=== PATIENT | female | born 1970 | race Caucasian/White ===

== ENCOUNTER 2016-08-15 17:25 | Emergency (ER) | payer OTHER ==
[2016-08-15] MEDS ORDERED: RX INFO: IV CONTRAST WAS GIVEN 1 EACH MISC MISCELLANE PRN (20:05)
--- NOTE | 2016-08-15 20:05 | ED ---
General Adult HPI - General Chief complaint: GI Bleed Stated complaint: Abd.pain/bleeding Time Seen by Provider: 08/15/16 18:30 Source: patient, RN notes reviewed Mode of arrival: ambulatory Limitations: no limitations - History of Present Illness Initial comments: This is a 46-year-old female who presents to the emergency department complaining of bright red blood per rectum. 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 Patient states this started 2 days ago and he continues every bowel movement. Patient does not have any lightheadedness dizziness or near syncopal episode she denies any palpitations she denies any difficulty breathing or shortness of breath. Patient states she has felt a little bit tired lately but that's it. Patient states she gets some abdominal pains particularly on the left lower side. Patient denies ever having had a colonoscopy. - Related Data Home Medications Medication Instructions Recorded Confirmed Omeprazole 20 mg PO HS 08/15/16 08/15/16 Vitamin B Complex 1 cap PO HS 08/15/16 08/15/16 Previous Rx's Medication Instructions Recorded Amoxicillin/Potassium Clav 1 each PO Q12HR #28 tab 08/15/16 [Augmentin 875-125 Tablet] Allergies Allergy/AdvReac Type Severity Reaction Status Date / Time BLOOD THINERS AdvReac CAN NOT Uncoded 08/15/16 19:41 HAVE Review of Systems ROS Statement: Those systems with pertinent positive or pertinent negative responses have been documented in the HPI. ROS Other: All systems not noted in ROS Statement are negative. Past Medical History Past Medical History: No Reported History History of Any Multi-Drug Resistant Organisms: None Reported Past Surgical History: Section Past Psychological History: No Psychological Hx Reported Smoking Status: Never smoker Past Alcohol Use History: Occasional Past Drug Use History: None Reported General Exam - General Exam Comments Initial Comments: GENERAL: Patient is well-developed and well-nourished. Patient is nontoxic and well- hydrated and is in no acute distress. ENT: Neck is soft and supple. No significant lymphadenopathy is noted. Oropharynx is clear. Moist mucous membranes. Neck has full range of motion without eliciting any pain. EYES: The sclera were anicteric and conjunctiva were pink and moist. Extraocular movements were intact and pupils were equal round and reactive to light. Eyelids were unremarkable. PULMONARY: Unlabored respirations. Good breath sounds bilaterally. No audible rales rhonchi or wheezing was noted. CARDIOVASCULAR: There is a regular rate and rhythm without any murmurs gallops or rubs. ABDOMEN: Patient has some tenderness in the left lower quadrant. No rebound or guarding. No palpable organomegaly was noted. There is no palpable pulsatile mass. SKIN: Skin is clear with no lesions or rashes and otherwise unremarkable. NEUROLOGIC: Patient is alert and oriented x3. Cranial nerves II through XII are grossly intact. Motor and sensory are also intact. Normal speech, volume and content. Symmetrical smile. MUSCULOSKELETAL: Normal extremities with adequate strength and full range of motion. LYMPHATICS: No significant lymphadenopathy is noted PSYCHIATRIC: Normal psychiatric evaluation. Limitations: no limitations Course Vital Signs 08/15/16 18:29 Temperature 99.2 F Pulse Rate 117 H Respiratory 20 Rate Blood Pressure 155/100 O2 Sat by Pulse 98 Oximetry Medical Decision Making - Medical Decision Making CAT scan shows mild diverticulitis - Lab Data Result diagrams: 08/15/16 20:10 08/15/16 20:10 Lab Results 08/15/16 08/15/16 08/15/16 Range/Units 20:10 20:10 20:10 WBC 11.3 H (3.8-10.6) k/uL RBC 4.65 (3.80-5.40) m/uL Hgb 15.6 (11.4-16.0) gm/dL Hct 45.9 (34.0-46.0) % MCV 98.8 (80.0-100.0) fL MCH 33.4 (25.0-35.0) pg MCHC 33.9 (31.0-37.0) g/dL RDW 12.6 (11.5-15.5) % Plt Count 252 (150-450) k/uL Neutrophils % 66 % Lymphocytes % 26 % Monocytes % 4 % Eosinophils % 2 % Basophils % 1 % Neutrophils # 7.4 (1.3-7.7) k/uL Lymphocytes # 2.9 (1.0-4.8) k/uL Monocytes # 0.5 (0-1.0) k/uL Eosinophils # 0.3 (0-0.7) k/uL Basophils # 0.1 (0-0.2) k/uL PT (9.0-12.0) sec INR (<1.1) APTT (22.0-30.0) sec Sodium 139 (137-145) mmol/L Potassium 4.1 (3.5-5.1) mmol/L Chloride 106 (98-107) mmol/L Carbon Dioxide 22 (22-30) mmol/L Anion Gap 11 mmol/L BUN 4 L (7-17) mg/dL Creatinine 0.77 (0.52-1.04) mg/dL Est GFR (MDRD) Af Amer >60 (>60 ml/min/1.73 sqM) Est GFR (MDRD) Non-Af >60 (>60 ml/min/1.73 sqM) Glucose 102 H (74-99) mg/dL Calcium 9.5 (8.4-10.2) mg/dL Total Bilirubin 0.6 (0.2-1.3) mg/dL AST 61 H (14-36) U/L ALT 88 H (9-52) U/L Alkaline Phosphatase 101 (38-126) U/L Total Protein 7.2 (6.3-8.2) g/dL Albumin 4.1 (3.5-5.0) g/dL Blood Type O Positive Blood Type Recheck No Antibody Screen NEGATIVE Spec Expiration Date 08/18/2016 - 230908/15/16 Range/Units 20:10 WBC (3.8-10.6) k/uL RBC (3.80-5.40) m/uL Hgb (11.4-16.0) gm/dL Hct (34.0-46.0) % MCV (80.0-100.0) fL MCH (25.0-35.0) pg MCHC (31.0-37.0) g/dL RDW (11.5-15.5) % Plt Count (150-450) k/uL Neutrophils % % Lymphocytes % % Monocytes % % Eosinophils % % Basophils % % Neutrophils # (1.3-7.7) k/uL Lymphocytes # (1.0-4.8) k/uL Monocytes # (0-1.0) k/uL Eosinophils # (0-0.7) k/uL Basophils # (0-0.2) k/uL PT 10.1 (9.0-12.0) sec INR 1.0 (<1.1) APTT 26.4 (22.0-30.0) sec Sodium (137-145) mmol/L Potassium (3.5-5.1) mmol/L Chloride (98-107) mmol/L Carbon Dioxide (22-30) mmol/L Anion Gap mmol/L BUN (7-17) mg/dL Creatinine (0.52-1.04) mg/dL Est GFR (MDRD) Af Amer (>60 ml/min/1.73 sqM) Est GFR (MDRD) Non-Af (>60 ml/min/1.73 sqM) Glucose (74-99) mg/dL Calcium (8.4-10.2) mg/dL Total Bilirubin (0.2-1.3) mg/dL AST (14-36) U/L ALT (9-52) U/L Alkaline Phosphatase (38-126) U/L Total Protein (6.3-8.2) g/dL Albumin (3.5-5.0) g/dL Blood Type Blood Type Recheck Antibody Screen Spec Expiration Date Disposition Clinical Impression: Diverticulitis, Rectal bleeding Disposition: HOME SELF-CARE Condition: Good Instructions: Diverticulitis (ED), Rectal Bleeding (ED) Prescriptions: Amoxicillin/Potassium Clav [Augmentin 875-125 Tablet] 1 each PO Q12HR #28 tab Referrals: Terrance Alfredo MD [Primary Care Provider] - 1-2 days Time of Disposition: 22:14
[2016-08-15 20:29] LABS: Basophils # (A) 0.1 k/uL (0-0.2); Basophils % (A) 1 %; CH 34.4; Eosinophils # (A) 0.3 k/uL (0-0.7); Eosinophils % (A) 2 %; HCT 45.9 % (34.0-46.0); HDW 2.24; HGB 15.6 gm/dL (11.4-16.0); Luc # (Auto) 0.15; Luc % (Auto) 1; Lymphocytes # (A) 2.9 k/uL (1.0-4.8); Lymphocytes % (A) 26 %; MCH 33.4 pg (25.0-35.0); MCHC 33.9 g/dL (31.0-37.0); MCV 98.8 fL (80.0-100.0); Mean Platelet Volume 7.6; Monocytes # (A) 0.5 k/uL (0-1.0); Monocytes % (A) 4 %; Neutrophils # (A) 7.4 k/uL (1.3-7.7); Neutrophils % (A) 66 %; RBC 4.65 m/uL (3.80-5.40); RDW 12.6 % (11.5-15.5); WBC 11.3 k/uL (3.8-10.6); WBC (Perox) 10.66
[2016-08-15 20:41] LABS: ALT 88 U/L (9-52); AST 61 U/L (14-36); Alkaline Phosphatase 101 U/L (38-126); Anion Gap 11 mmol/L; Blood Urea Nitrogen 4 mg/dL (7-17); Calcium 9.5 mg/dL (8.4-10.2); Carbon Dioxide 22 mmol/L (22-30); Chloride 106 mmol/L (98-107); Glucose 102 mg/dL (74-99); Non-African American GFR(MDRD) >60 (>60 ml/min/1.73 sqM); Potassium 4.1 mmol/L (3.5-5.1); Sodium 139 mmol/L (137-145); Total Bilirubin 0.6 mg/dL (0.2-1.3); Total Protein 7.2 g/dL (6.3-8.2)
[2016-08-15 20:58] LABS: Partial Thromboplastin Time 26.4 sec (22.0-30.0); Prothrombin Time 10.1 sec (9.0-12.0)
--- NOTE | 2016-08-15 21:46 | CT ---
EXAMINATION TYPE: CT abdomen pelvis w con DATE OF EXAM: 08/15/2016 9:31 PM COMPARISON: NONE HISTORY: Rectal bleeding CT DLP: mGycm Automated exposure control for dose reduction was used. TECHNIQUE: Helical acquisition of images was performed from the lung bases through the pelvis. Technique Multiple axial sections were obtained from the diaphragm to the floor of the pelvis with intravenous contrast. The contrast was Omnipaque 100 mL. FINDINGS: Lung bases are clear. There is no pleural effusion. Heart size is normal. Liver shows no focal defect. Gallbladder is normal. Bile ducts are not dilated. There is no pancreati c mass. Spleen appears normal. There is no adrenal mass. Kidneys have normal size and contour. There is no hydronephrosis. There is no retroperitoneal adenopathy. There is no ascites. I see no intestina l wall thickening. There is minimal stranding around the distal descending colon. There is no evidenc e of an abscess. Bladder is almost empty. There is no sign of a pelvic mass. I see no definite free f luid in the abdomen. Uterus is anteverted. I see no bony destructive process. Appendix is not definit bunny seen. There is no sign of appendicitis. IMPRESSION: THERE IS MINIMAL FAT STRANDING AROUND THE DISTAL DESCENDING COLON THAT COULD RELATE TO MINIMAL DIVERT ICULITIS. NO EVIDENCE OF AN ABSCESS.
[2016-08-15] MEDS ORDERED: AMOXIC-POT CLAV 875MG STARTER 2 EACH TABLET PO STA (22:17)
[2016-08-15] MEDS ORDERED: AMOXIC-POT CLAV 875-125MG 1 EACH TAB PO STA (22:17)
[2016-08-15 23:09] VITALS: BP 142/80; PULSE 86; RESP 18; TEMP 97.9
== END 2016-08-15 22:30 | disposition home or self-care (01) ==
LOC: EC 17:25
DX: K57.92 Diverticulitis of intestine, part unspecified, without perforation or abscess without bleeding (principal); K62.5 Hemorrhage of anus and rectum; Z79.899 Other long term (current) drug therapy; Z88.8 Allergy status to other drugs, medicaments and biological substances
CPT/HCPCS: 36415; 86900; 86901; 80053; 85025; 85610; 85730; 86850; 74177; 99285; Q9967

== ENCOUNTER → 2016-11-09 | Outpatient (CLI) | payer OTHER ==
--- NOTE | 2016-11-09 20:49 | MR ---
EXAMINATION TYPE: MR knee LT wo con DATE OF EXAM: 11/09/2016 4:36 PM COMPARISON: NONE HISTORY: Knee pain TECHNIQUE: Multiplanar, multisequence imaging of the left knee is performed without contrast. FINDINGS: MEDIAL MENISCUS: Anterior and posterior horns are intact without tear. LATERAL MENISCUS: Anterior and posterior horns are intact without tear. CRUCIATE LIGAMENTS: Mild increased signal involving the ACL at its tibial insertion which may reflect strain. There is no evidence for ACL tear. PCL is intact. COLLATERAL LIGAMENTS: The medial collateral ligament and lateral collateral ligament complex are intact and unremarkable. EXTENSOR MECHANISM: Visualized quadriceps and patellar tendons are intact. EFFUSION: No evidence for joint effusion. POPLITEAL CYST: No popliteal/tran cyst. TRICOMPARTMENT SPACES: The tricompartment joint spaces appear within normal limits. CARTILAGE: The articular cartilage is maintained without abnormal signal or full-thickness defect. BONE MARROW SIGNAL: There is transversely oriented fracture involving the tibial metaphysis with smal l vertical component extending to the posterior aspect of the medial tibial plateau adjacent to the i ntercondylar spine. No significant fracture displacement or depression is noted. There is extensive b one marrow edema identified. OTHER: Soft tissue edema adjacent to to the patellar tendon. IMPRESSION: 1. Nondepressed nondisplaced tibial plateau fracture as discussed above. 2. Strain of the ACL. No definite tear seen.
== END | disposition home or self-care (01) ==
LOC: RADMRIMAIN 15:49
PROVIDERS: ATTEND Nurse Practitioner Family
DX: S82.145A Nondisplaced bicondylar fracture of left tibia, initial encounter for closed fracture (principal); S83.512A Sprain of anterior cruciate ligament of left knee, initial encounter
CPT/HCPCS: 72050

== ENCOUNTER → 2016-11-09 | Outpatient (CLI) | payer OTHER ==
--- NOTE | 2016-11-10 08:41 | XR ---
EXAMINATION TYPE: XR cervical spine comp DATE OF EXAM: 11/09/2016 4:52 PM COMPARISON: NONE HISTORY: Pain TECHNIQUE: Four views are submitted. FINDINGS: The odontoid is intact. There are no compression deformities. The prevertebral soft tissue structur es are within normal limits. Loss of the normal cervical lordosis. IMPRESSION: 1. No acute process.
== END ==
LOC: RADXRMAIN 16:32
PROVIDERS: ATTEND Nurse Practitioner Family
DX: M54.2 Cervicalgia (principal)
CPT/HCPCS: 72050

== ENCOUNTER → 2021-02-10 | Outpatient (CLI) | payer OTHER ==
[2021-02-11 00:10] LABS: HCT 41.1 % (37.2-46.3); HGB 13.2 g/dL (12.0-15.0); MCH 31.7 pg (27.0-32.0); MCHC 32.1 g/dL (32.0-37.0); MCV 98.6 fL (80.0-97.0); Mean Platelet Volume 10.8 fL (9.5-12.2); Platelet Count 376 X 10*3/uL (140-440); RBC 4.17 X 10*6/uL (4.10-5.20); RDW 17.2 % (11.5-14.5); WBC 8.04 X 10*3/uL (4.50-10.00)
[2021-02-11 01:37] LABS: Gliadin AB IgA, Deaminated NEGATIVE (NEGATIVE); Gliadin AB IgA, Unit <0.2 U/mL; Gliadin AB IgG, Deaminated NEGATIVE (NEGATIVE)
[2021-02-11 03:00] LABS: African American GFR (CKD) 100.3 (60.0-200.0); Albumin 4.1 g/dL (3.80-4.90); Albumin/Globulin Ratio 1.58 (1.60-3.17); BUN/Creat Ratio 7.5 Ratio (12.00-20.00); C Reactive Protein 0.5 mg/dL (0.0-0.8); Calcium 8.8 mg/dL (8.7-10.3); Globulin 2.6 g/dL (1.6-3.3); Non-African American GFR(CKD) 86.6 (60.0-200.0); Total Bilirubin 0.3 mg/dL (0.3-1.2); Total Protein 6.7 g/dL (6.2-8.2)
[2021-02-11 05:24] LABS: Erythrocyte Sedimentation Rate 33 mm/Hr (0-20)
== END | disposition home or self-care (01) ==
LOC: LABWHC1 15:52
PROVIDERS: ATTEND Internal Medicine Gastroenterology
DX: K52.9 Noninfective gastroenteritis and colitis, unspecified (principal)
CPT/HCPCS: 36415; 80053; 83516; 83630; 85027; 85652; 86140; 87045; 87046; 87324; 87328; 87329

== ENCOUNTER → 2021-02-17 | Outpatient (CLI) | payer OTHER ==
[2021-02-17 23:14] LABS: Anisocytosis Slight; Basophils # (A) 0.1 k/uL (0-0.2); Basophils % (A) 1 %; Eosinophils # (A) 0.2 k/uL (0-0.7); Eosinophils % (A) 2 %; HCT 45.2 % (34.0-46.0); HGB 14.7 gm/dL (11.4-16.0); Lymphocytes # (A) 2.1 k/uL (1.0-4.8); Lymphocytes % (A) 27 %; MCH 32.5 pg (25.0-35.0); MCHC 32.6 g/dL (31.0-37.0); MCV 99.8 fL (80.0-100.0); Macrocytosis Slight; Mean Platelet Volume 7.8; Monocytes # (A) 0.3 k/uL (0-1.0); Monocytes % (A) 4 %; Neutrophils # (A) 5.1 k/uL (1.3-7.7); Neutrophils % (A) 65 %; Platelet Count 293 k/uL (150-450); RBC 4.53 m/uL (3.80-5.40); RDW 16.4 % (11.5-15.5); WBC 7.8 k/uL (3.8-10.6)
== END | disposition home or self-care (01) ==
LOC: LABMAIN 22:42
PROVIDERS: ATTEND Internal Medicine
DX: D66 Hereditary factor VIII deficiency (principal)
CPT/HCPCS: 36415; 82728; 85025

== ENCOUNTER 2021-03-02 08:00 | Day surgery (SDC) | payer OTHER ==
[2021-02-25 16:38] VITALS: BMI 22.5
[~2021-03-02 08:00] MED LIST: LACTATED RINGERS 1,000 ML IV SCH; LIDOCAINE 1% (10MG/ML) FOR IV START INTRADERMA PRN
[2021-03-02 08:45] VITALS: TEMP 97
[2021-03-02] MEDS ORDERED: MIDAZOLAM 2 MG/2 ML VIAL ONE (09:16)
[2021-03-02] MEDS ORDERED: LIDOCAINE 1% INJ 10MG/ML (20 ML MDV) ONE (09:16)
[2021-03-02] MEDS ORDERED: PROPOFOL 10 MG/ML 20 ML VIAL IV ONE (09:16)
--- NOTE | 2021-03-02 09:56 | P.PCN ---
Date of Procedure: 03/02/21 Procedure(s) Performed: Brief history: Patient is a pleasant 50-year-old white female with history of hemophilia A, scheduled for an elective upper endoscopy as well as colonoscopy as a part of evaluation of abdominal pain, change in bowel habits, intermittent nausea vomiting and diarrhea for the last few weeks duration. She lost 20-20 pounds since onset of symptoms. Procedure performed: Esophagogastroduodenoscopy biopsy Colonoscopy with snare polypectomy and biopsy Preoperative diagnosis: Abdominal pain/intermittent nausea vomiting Chronic diarrhea and progressive weight loss Anesthesia: MAC Procedure: After informed consent was obtained from the patient was brought into the endoscopy unit and IV sedation was administered by anesthesia under continuous monitoring. Initially upper endoscopy was done. The Olympus GF 160 video endoscope was inserted inserted into the mouth and esophagus intubated without any difficulty and was gradually advanced into the stomach and duodenum and carefully examined. The bulb and second part of the duodenum appeared normal. Biopsies were done from the duodenum to rule out celiac disease. The scope was then withdrawn into the stomach adequately insufflated with air and upon careful examination the antrum had mild gastritis and biopsies were done from this area. The body, cardia and fundus appeared normal. The scope was then withdrawn into the esophagus. The GE junction was located at 40 cm to the incisors. It appeared regular with no erythema erosions or ulcerations. Rest of the esophagus appeared normal. Patient tolerated the procedure well. At this time the patient continued to remain sedation. Initial digital rectal examination was normal. Olympus CF 160 video colonoscope was then inserted into the rectum and gradually advanced to the cecum without any difficulty. Careful examination was performed as the scope was gradually being withdrawn. The prep was excellent. The cecum, ascending colon, transverse colon, descending colon appeared normal. In the distal sigmoid colon there was a 1 cm pegylated polyp removed by snare polypectomy. In the distal rectum there was a 1 cm polyp removed by snare polypectomy. Rest of the, sigmoid colon and rectum appeared normal. Random biopsies were done from ascending and descending colon to rule out microscopic/collagenous colitis. Retroflexion was performed in the rectum and no lesions were noted. Patient tolerated the procedure well. Impression: 1. Upper endoscopy revealed mild antral gastritis and small hiatal hernia 2. Colonoscopy revealed: a)2 cm pedunculated distal sigmoid colon polyp status post polypectomy b)1 cm distal rectal polyp status post polypectomy c)No evidence of colitis Recommendations: Findings of this examination were discussed with the patient as well as a her family. She was advised to follow with the biopsy results. If the biopsy re veals adenoma she can have a repeat colonoscopy in 3 years. She'll be seen in office next week. Patient was advised to take factor VIII as recommended by her plug cutter because of multiple biopsies and polypectomies done today.
[2021-03-02 10:14] VITALS: BP 119/83; PULSE 76; RESP 20
== END 2021-03-02 11:00 | disposition home or self-care (01) ==
LOC: ORWHC2ENDO 08:00
PROVIDERS: ATTEND Internal Medicine Gastroenterology
DX: K29.50 Unspecified chronic gastritis without bleeding (principal); K52.9 Noninfective gastroenteritis and colitis, unspecified; D12.8 Benign neoplasm of rectum; D66 Hereditary factor VIII deficiency; I10 Essential (primary) hypertension; F17.210 Nicotine dependence, cigarettes, uncomplicated; K21.9 Gastro-esophageal reflux disease without esophagitis; Z79.899 Other long term (current) drug therapy
CPT/HCPCS: 81025; 88305; 88313; 45385; 43239; J2250; J2001; J2704

== ENCOUNTER 2021-04-17 00:25 | Emergency (ER) | payer OTHER ==
[2021-04-17] MEDS ORDERED: MORPHINE SULFATE 4 MG/ML SYRINGE IV STA (00:38)
--- NOTE | 2021-04-17 00:40 | ED ---
Chest Pain HPI - General Chief Complaint: Chest Pain Stated Complaint: Chest pain, SOB Time Seen by Provider: 04/17/21 00:38 Source: patient, RN notes reviewed, old records reviewed Mode of arrival: ambulatory Limitations: no limitations - History of Present Illness Initial Comments: 50-year-old female DF for evaluation of chest pain today. Patient was admitted for chest pain shortness of breath. Patient doesn't heart is beating had a rapid rate. Patient feels lightheaded and dizzy and weak. Patient is not on blood thinners. History of high blood pressure. MD Complaint: chest pain -: hour(s) Onset: during rest Pain Location: substernal Pain Radiation: none Severity: moderate Severity scale (1-10): 4 Quality: sharp Consistency: constant Improves With: nothing Worsens With: nothing Context: recent illness, other (Recent admission for chest pain, treatment for pneumonia) Anginal Symptoms: dyspnea, sense of impending doom Other Symptoms: cough, palpitations Treatments Prior to Arrival: none - Related Data Home Medications Medication Instructions Recorded Confirmed Omeprazole 40 mg PO HS 08/15/16 02/25/21 Famotidine [Pepcid] 20 mg PO DAILY 02/25/21 02/25/21 Ondansetron [Zofran] 4 mg PO DAILY PRN 02/25/21 02/25/21 Pedi Multivit No.25/Folic Acid 2 tab PO DAILY 02/25/21 02/25/21 [Flintstones Multivit Chew Tab] diphenhydrAMINE HCL [Benadryl] 50 mg PO HS 02/25/21 02/25/21 traMADol HCL [Ultram] 50 mg PO Q4-6H PRN 02/25/21 02/25/21 Allergies Allergy/AdvReac Type Severity Reaction Status Date / Time NSAIDS (Non-Steroidal AdvReac Uable to Verified 04/17/21 00:37 Anti-Inflamma take BLOOD THINERS AdvReac CAN NOT Uncoded 04/17/21 00:37 HAVE Review of Systems ROS Statement: Those systems with pertinent positive or pertinent negative responses have been documented in the HPI. ROS Other: All systems not noted in ROS Statement are negative. EKG Findings - EKG Comments: EKG Findings:: EKG is normal sinus rhythm 89 CO 120 QRS 88 QTc 444 Past Medical History Past Medical History: Blood Disorder, GI Bleed, Hypertension, Pneumonia Additional Past Medical History / Comment(s): Past hx HTN. c/o nausea, abd pain, diarrhea for 2 months, lost 26#. 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 History of Any Multi-Drug Resistant Organisms: None Reported Past Surgical History: Section, Tonsillectomy Past Anesthesia/Blood Transfusion Reactions: No Reported Reaction Past Psychological History: No Psychological Hx Reported Smoking Status: Current every day smoker Past Alcohol Use History: Daily Past Drug Use History: None Reported - Past Family History Mother Family Medical History: Blood Disorder Additional Family Medical History / Comment(s): clotting disorder General Exam Limitations: no limitations General appearance: anxious Head exam: Present: atraumatic, normocephalic, normal inspection Eye exam: Present: normal appearance, PERRL, EOMI. Absent: scleral icterus, conjunctival injection, periorbital swelling ENT exam: Present: normal exam, mucous membranes moist Neck exam: Present: normal inspection. Absent: tenderness, meningismus, lymphadenopathy Respiratory exam: Present: normal lung sounds bilaterally. Absent: respiratory distress, wheezes, rales, rhonchi, stridor Cardiovascular Exam: Present: normal rhythm, tachycardia, normal heart sounds. Absent: systolic murmur, diastolic murmur, rubs, gallop, clicks GI/Abdominal exam: Present: soft, normal bowel sounds. Absent: distended, tenderness, guarding, rebound, rigid Extremities exam: Present: normal inspection, full ROM, normal capillary refill. Absent: tenderness, pedal edema, joint swelling, calf tenderness Back exam: Present: normal inspection Neurological exam: Present: alert, oriented X3, CN II-XII intact Psychiatric exam: Present: normal affect, normal mood Skin exam: Present: warm, dry, intact, normal color. Absent: rash Course Vital Signs 04/17/21 04/17/21 00:32 01:05 Temperature 98.3 F Pulse Rate 117 H 102 H Respiratory 20 22 Rate Blood Pressure 158/84 O2 Sat by Pulse 96 97 Oximetry - Reevaluation(s) Reevaluation #1: 04/17/21 00:40 Medical records reviewed Reevaluation #2: 04/17/21 02:54 Patient symptoms are improved Reevaluation #3: 04/17/21 02:54 Patient informed of results and questions answered Patient states she has history of elevated liver enzymes Reevaluation #4: 04/17/21 02:54 Patient is in no acute distress and okay for discharge home Chest Pain MDM - MDM 50 female to the resource today. Patient Dese for evaluation of symptoms of chest pain. Recent hospitalization with pneumonia. X-rays negative labwork is normal d-dimer is negative. Blood sugar is mildly elevated she is dehydrated which is improved and patient can be discharged home Disposition Clinical Impression: Atypical chest pain, Chest pain, Hyperglycemia Disposition: HOME SELF-CARE Condition: Good Instructions (If sedation given, give patient instructions): Chest Pain (ED), Diabetic Hyperglycemia (ED) Is patient prescribed a controlled substance at d/c from ED?: No Referrals: Nonstaff,Physician [REFERRING] - 1-2 days
--- NOTE | 2021-04-17 01:19 | XR ---
EXAMINATION TYPE: XR chest 2V DATE OF EXAM: 04/17/2021 COMPARISON: NONE HISTORY: Chest pain TECHNIQUE: 2 views FINDINGS: Heart and mediastinum are normal. Lungs are clear. Diaphragm is normal. Bony thorax is inta ct. There are chest leads. IMPRESSION: Normal chest.
[2021-04-17 01:30] LABS: Basophils # (A) 0.1 k/uL (0-0.2); Basophils % (A) 0 %; Eosinophils # (A) 0.1 k/uL (0-0.7); Eosinophils % (A) 1 %; HCT 42.2 % (34.0-46.0); HGB 13.5 gm/dL (11.4-16.0); Lymphocytes # (A) 2.5 k/uL (1.0-4.8); Lymphocytes % (A) 20 %; MCH 31.7 pg (25.0-35.0); MCV 99.1 fL (80.0-100.0); Mean Platelet Volume 7.3; Monocytes # (A) 0.6 k/uL (0-1.0); Monocytes % (A) 5 %; Neutrophils # (A) 9.4 k/uL (1.3-7.7); Neutrophils % (A) 73 %; Platelet Count 316 k/uL (150-450); RBC 4.26 m/uL (3.80-5.40); RDW 14.8 % (11.5-15.5); WBC 12.8 k/uL (3.8-10.6)
[2021-04-17 01:40] LABS: INR 0.9 (<1.2); Partial Thromboplastin Time 23.7 sec (22.0-30.0); Prothrombin Time 10.2 sec (9.0-12.0)
[2021-04-17 01:47] LABS: ALT 102 U/L (4-34); AST 109 U/L (14-36); African American GFR (CKD) >90 (>60 ml/min/1.73 sqM); Albumin 3.5 g/dL (3.5-5.0); Alkaline Phosphatase 141 U/L (38-126); Anion Gap 16 mmol/L; Blood Urea Nitrogen 6 mg/dL (7-17); Carbon Dioxide 19 mmol/L (22-30); Chloride 100 mmol/L (98-107); Glucose 207 mg/dL (74-99); Lipase 54 U/L (23-300); Magnesium 1.9 mg/dL (1.6-2.3); Non-African American GFR(CKD) >90 (>60 ml/min/1.73 sqM); Potassium 3.7 mmol/L (3.5-5.1); Sodium 135 mmol/L (137-145); Total Bilirubin 0.3 mg/dL (0.2-1.3); Total Protein 6.2 g/dL (6.3-8.2)
[2021-04-17] MEDS ORDERED: SODIUM CHLORIDE 0.9% 1,000 ML IV STA (02:31)
[2021-04-17] MEDS ORDERED: SODIUM CHLORIDE 0.9% 500 ML 500 ML IV STA (02:31)
[2021-04-17 03:14] VITALS: BP 140/74; PULSE 75; RESP 18; TEMP 98
== END 2021-04-17 03:40 | disposition home or self-care (01) ==
LOC: EC 00:25
DX: R07.89 Other chest pain (principal); R73.9 Hyperglycemia, unspecified; I10 Essential (primary) hypertension; F17.200 Nicotine dependence, unspecified, uncomplicated; Z88.6 Allergy status to analgesic agent; Z79.899 Other long term (current) drug therapy
CPT/HCPCS: 99285; 96374; 96361; 36415; 93005; 85379; 83880; 80053; 83690; 83735; 84484; 85025; 85610; 85730; 71046; J2270

== ENCOUNTER 2021-04-21 00:57 | Emergency (ER) | payer OTHER ==
[2021-04-21 01:04] VITALS: TEMP 97.8
[2021-04-21 01:58] VITALS: RESP 17
[2021-04-21 02:04] LABS: Basophils # (A) 0.1 k/uL (0-0.2); Basophils % (A) 1 %; Eosinophils # (A) 0.2 k/uL (0-0.7); Eosinophils % (A) 1 %; HCT 42.3 % (34.0-46.0); HGB 14.3 gm/dL (11.4-16.0); Lymphocytes # (A) 5.1 k/uL (1.0-4.8); Lymphocytes % (A) 19 %; MCH 32.8 pg (25.0-35.0); MCHC 33.9 g/dL (31.0-37.0); MCV 96.7 fL (80.0-100.0); Mean Platelet Volume 7.4; Monocytes # (A) 0.9 k/uL (0-1.0); Monocytes % (A) 3 %; Neutrophils % (A) 76 %; Platelet Count 378 k/uL (150-450); RBC 4.37 m/uL (3.80-5.40); RDW 15.7 % (11.5-15.5); WBC 27.5 k/uL (3.8-10.6)
--- NOTE | 2021-04-21 02:12 | XR ---
EXAMINATION TYPE: XR chest 2V DATE OF EXAM: 04/21/2021 COMPARISON: 04/17/2021 HISTORY: Chest pain TECHNIQUE: FINDINGS: Heart and mediastinum are normal. Lungs appear clear of infiltrate. There are no hilar mass es. There is no pleural effusion. Bony thorax is intact. There are chest leads. IMPRESSION: No active cardiopulmonary disease. No adverse change.
[2021-04-21 02:16] LABS: ALT 73 U/L (4-34); AST 53 U/L (14-36); African American GFR (CKD) >90 (>60 ml/min/1.73 sqM); Albumin 4.1 g/dL (3.5-5.0); Alkaline Phosphatase 131 U/L (38-126); Amylase 51 U/L (30-110); Anion Gap 15 mmol/L; Blood Urea Nitrogen 9 mg/dL (7-17); Calcium 9.4 mg/dL (8.4-10.2); Carbon Dioxide 18 mmol/L (22-30); Chloride 99 mmol/L (98-107); Glucose 141 mg/dL (74-99); Lipase 30 U/L (23-300); Magnesium 2.2 mg/dL (1.6-2.3); Non-African American GFR(CKD) >90 (>60 ml/min/1.73 sqM); Potassium 3.7 mmol/L (3.5-5.1); Sodium 132 mmol/L (137-145); Total Bilirubin 0.4 mg/dL (0.2-1.3)
[2021-04-21 02:18] LABS: Partial Thromboplastin Time 24.1 sec (22.0-30.0); Prothrombin Time 10.3 sec (9.0-12.0)
--- NOTE | 2021-04-21 02:28 | ED ---
Chest Pain HPI - General Chief Complaint: Chest Pain Stated Complaint: chest pain Time Seen by Provider: 04/21/21 01:09 Source: patient Mode of arrival: ambulatory Limitations: no limitations - History of Present Illness Initial Comments: This patient is a 50-year-old woman who presents to have evaluation of hypertension. She states that she had checked her blood pressure tonight and found that it was high. She checked again a number of times and it seemed to be continuing to increase. Patient also was feeling like her chest was tight, but denies ramon pain. No fever or chills. No dyspnea. The patient does have very occasional cough, she states she had just been in the other hospital with diagnosis of pneumonia. She had just finished a course of antibiotics and steroid blood days ago. Complaint: other -: hour(s) Onset: during rest Improves With: nothing Worsens With: nothing Context: recent illness Treatments Prior to Arrival: none - Related Data Home Medications Medication Instructions Recorded Confirmed Omeprazole 40 mg PO HS 08/15/16 02/25/21 Famotidine [Pepcid] 20 mg PO DAILY 02/25/21 02/25/21 Ondansetron [Zofran] 4 mg PO DAILY PRN 02/25/21 02/25/21 Pedi Multivit No.25/Folic Acid 2 tab PO DAILY 02/25/21 02/25/21 [Flintstones Multivit Chew Tab] diphenhydrAMINE HCL [Benadryl] 50 mg PO HS 02/25/21 02/25/21 traMADol HCL [Ultram] 50 mg PO Q4-6H PRN 02/25/21 02/25/21 Allergies Allergy/AdvReac Type Severity Reaction Status Date / Time NSAIDS (Non-Steroidal AdvReac Uable to Verified 04/21/21 01:00 Anti-Inflamma take BLOOD THINERS AdvReac CAN NOT Uncoded 04/21/21 01:00 HAVE Review of Systems ROS Statement: Those systems with pertinent positive or pertinent negative responses have been documented in the HPI. ROS Other: All systems not noted in ROS Statement are negative. Constitutional: Denies: fever, chills, weakness Respiratory: Denies: cough, dyspnea Cardiovascular: Reports: as per HPI, chest pain. Denies: palpitations, edema, syncope Gastrointestinal: Denies: abdominal pain, vomiting, diarrhea Genitourinary: Denies: dysuria, hematuria Musculoskeletal: Denies: back pain Skin: Denies: rash Neurological: Denies: headache, weakness Psychiatric: Reports: anxiety Past Medical History Past Medical History: Blood Disorder, GI Bleed, Hypertension, Pneumonia Additional Past Medical History / Comment(s): Past hx HTN. c/o nausea, abd pain, diarrhea for 2 months, lost 26#. 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 History of Any Multi-Drug Resistant Organisms: None Reported Past Surgical History: Section, Tonsillectomy Past Anesthesia/Blood Transfusion Reactions: No Reported Reaction Past Psychological History: No Psychological Hx Reported Smoking Status: Current every day smoker Past Alcohol Use History: Occasional Past Drug Use History: None Reported - Past Family History Mother Family Medical History: Blood Disorder Additional Family Medical History / Comment(s): clotting disorder General Exam Limitations: no limitations General appearance: alert, in no apparent distress, anxious Head exam: Present: atraumatic, normocephalic Eye exam: Present: normal appearance. Absent: scleral icterus, conjunctival injection ENT exam: Present: normal oropharynx Neck exam: Present: normal inspection Respiratory exam: Present: normal lung sounds bilaterally. Absent: respiratory distress, wheezes, rales, rhonchi, stridor Cardiovascular Exam: Present: regular rate, normal rhythm, normal heart sounds. Absent: systolic murmur, diastolic murmur, rubs, gallop GI/Abdominal exam: Present: soft. Absent: distended, tenderness, guarding, rebound, rigid, mass Extremities exam: Present: normal inspection, normal capillary refill. Absent: pedal edema, calf tenderness Back exam: Present: normal inspection. Absent: CVA tenderness (R), CVA tenderness (L) Neurological exam: Present: alert Psychiatric exam: Present: anxious Skin exam: Present: warm, dry, intact, normal color. Absent: rash Course Vital Signs 04/21/21 04/21/21 01:01 01:56 Temperature 97.8 F Pulse Rate 120 H 87 Respiratory 20 17 Rate Blood Pressure 193/114 134/90 O2 Sat by Pulse 97 95 Oximetry Disposition Clinical Impression: Hypertension, Leukocytosis Disposition: HOME SELF-CARE Condition: Good Instructions (If sedation given, give patient instructions): Hypertension (ED) Additional Instructions: As we discussed, follow-up to have your with blood cell count rechecked. Is patient prescribed a controlled substance at d/c from ED?: No Referrals: Terrance Alfredo MD [Primary Care Provider] - 1-2 days Robel Cook MD [STAFF PHYSICIAN] - 1-2 days
[2021-04-21 02:39] VITALS: BP 122/81; PULSE 96
== END 2021-04-21 02:39 | disposition home or self-care (01) ==
LOC: EC 00:57
DX: I10 Essential (primary) hypertension (principal); D72.829 Elevated white blood cell count, unspecified; F17.200 Nicotine dependence, unspecified, uncomplicated; Z90.89 Acquired absence of other organs
CPT/HCPCS: 36415; 71046; 80053; 82150; 83690; 83735; 84484; 85025; 85379; 85610; 85730; 93005; 99285

== ENCOUNTER 2021-08-01 19:36 | Emergency (ER) | payer OTHER ==
[2021-08-01 19:59] VITALS: TEMP 98.4
--- NOTE | 2021-08-01 22:16 | CT ---
EXAMINATION TYPE: CT brain wo con DATE OF EXAM: 08/01/2021 COMPARISON: None HISTORY: c/o confusion CT DLP: 1098.4 mGycm Automated exposure control for dose reduction was used. Images of the brain obtained without contrast. Ventricles have normal size. There is no mass effect or midline shift. There is no sign of intracrani al hemorrhage. Calvarium is intact. There is normal aeration of the mastoid sinuses. Skull base is in tact. IMPRESSION: Negative unenhanced head CT scan.
--- NOTE | 2021-08-01 22:21 | XR ---
EXAMINATION TYPE: XR chest 2V DATE OF EXAM: 08/01/2021 COMPARISON: 04/21/2021 HISTORY: Chest pain TECHNIQUE: 2 views FINDINGS: Heart and mediastinum are normal. Lungs are clear. Diaphragm is normal. Bony thorax is inta ct. IMPRESSION: Normal chest. No change.
[2021-08-01 22:32] LABS: Glucose,Whole Blood 96 mg/dL (75-99)
[2021-08-01 22:32] LABS: Appearance,Urine Cloudy (Clear); Bacteria,Urine Rare /hpf; Bilirubin,Urine Negative (Negative); Blood,Urine Negative (Negative); Color,Urine Yellow; Glucose,Urine (UA) Negative (Negative); Ketones,Urine Trace (Negative); Leukocyte Esterase,Urine Moderate (Negative); Mucus,Urine Occasional /hpf; Nitrite,Urine Negative (Negative); PH, Urine 5.5 (5.0-8.0); Protein,Urine Trace (Negative); Specific Gravity,Urine 1.029 (1.001-1.035); Squamous Epithelial Cell,Urine 66 /hpf (0-4); WBC,Urine 14 /hpf (0-5)
[2021-08-01 22:41] LABS: Amphetamine Screen,Urine Detected (NotDetected); Barbiturate Screen,Urine Not Detected (NotDetected); Benzodiazepines Screen,Urine Not Detected (NotDetected); Cocaine Screen,Urine Not Detected (NotDetected); Methadone Screen, Urine Not Detected (NotDetected); Opiate Screen,Urine Not Detected (NotDetected); Oxycodone Screen, Urine Not Detected (NotDetected); Phencyclidine Screen,Urine Not Detected (NotDetected); Tricyclic Antidepressant,Urine Not Detected (NotDetected); Urn Cannabinoid Scrn Not Detected (NotDetected)
--- NOTE | 2021-08-01 23:07 | ED ---
General Adult HPI - General Chief complaint: Neuro Symptoms/Deficit Stated complaint: Stroke symptoms Time Seen by Provider: 08/01/21 21:34 Source: patient Mode of arrival: ambulatory - History of Present Illness Initial comments: 51-year-old female presents to the emergency department with vague complaints of mental fogginess, sensation of being off balance and bilateral hand and foot tingling. She reports that her symptoms have been present for a few days without improvement. States she's had fatigue. Denies any fevers. No headaches or visual changes. Denies any chest pain or shortness of breath. No recent medication changes or illnesses. Denies head injury. Patient on any blood thinners. Denies any weakness in her extremity. No history of strokes. 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 - Related Data Home Medications Medication Instructions Recorded Confirmed Omeprazole 40 mg PO HS 08/15/16 08/01/21 diphenhydrAMINE HCL [Benadryl] 50 mg PO BID 02/25/21 08/01/21 traMADol HCL [Ultram] 50 - 100 mg PO Q4-6H PRN 02/25/21 08/01/21 Echinacea + Vit C 1 tab PO HS 08/01/21 08/01/21 Ondansetron Odt [Zofran Odt] 4 mg PO DAILY PRN 08/01/21 08/01/21 Allergies Allergy/AdvReac Type Severity Reaction Status Date / Time NSAIDS (Non-Steroidal AdvReac Uable to Verified 08/01/21 21:57 Anti-Inflamma take BLOOD THINERS AdvReac CAN NOT Uncoded 04/21/21 01:00 HAVE Review of Systems ROS Statement: Those systems with pertinent positive or pertinent negative responses have been documented in the HPI. ROS Other: All systems not noted in ROS Statement are negative. Past Medical History Past Medical History: Blood Disorder, GI Bleed, Hypertension, Pneumonia Additional Past Medical History / Comment(s): Past hx HTN. c/o nausea, abd pain, diarrhea for 2 months, lost 26#. 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 History of Any Multi-Drug Resistant Organisms: None Reported Past Surgical History: Section, Tonsillectomy Past Anesthesia/Blood Transfusion Reactions: No Reported Reaction Past Psychological History: No Psychological Hx Reported Smoking Status: Current every day smoker Past Alcohol Use History: Occasional Past Drug Use History: None Reported - Past Family History Mother Family Medical History: Blood Disorder Additional Family Medical History / Comment(s): clotting disorder Course Vital Signs 08/01/21 08/02/21 19:53 01:34 Temperature 98.4 F Pulse Rate 107 H 75 Respiratory 18 16 Rate Blood Pressure 135/90 115/81 O2 Sat by Pulse 100 99 Oximetry EKG Findings - EKG Comments: EKG Findings:: EKG demonstrates sinus rhythm with a ventricular rate of 75. OK interval 138. QRS 93. QTC of 412. No acute ST segment elevations or depressions concerning for ischemic changes. Medical Decision Making - Medical Decision Making Upon arriving patient is placed into room 8. Thorough history and physical exam is performed. Laboratory scissor conducted. Patient sent for CT of her head because of her reported symptoms with history of hemophilia a. Laboratory studies are reviewed. Results are discussed with patient including positive test for amphetamines. CT of her brain demonstrates no acute process. Patient reevaluated and continues to have no focal neurologic deficits. NIH is 0. Did discuss diagnosis, differential treatment options. Patient instructed not to drive due to reported symptoms. Needs pulse primary care doctor within 2-4 days. Will likely require neurology consultation with possible MRI for which the patient understood. She is to return for any worsening symptoms for patient. She will was discharged home in stable condition - Lab Data Result diagrams: 08/01/21 22:00 08/01/21 22:00 Lab Results 08/01/21 08/01/21 08/01/21 Range/Units 22:00 22:00 22:00 WBC 7.3 (3.8-10.6) k/uL RBC 4.07 (3.80-5.40) m/uL Hgb 13.1 (11.4-16.0) gm/dL Hct 41.3 (34.0-46.0) % MCV 101.4 H (80.0-100.0) fL MCH 32.3 (25.0-35.0) pg MCHC 31.9 (31.0-37.0) g/dL RDW 15.4 (11.5-15.5) % Plt Count 269 (150-450) k/uL MPV 7.2 Neutrophils % 65 % Lymphocytes % 25 % Monocytes % 4 % Eosinophils % 3 % Basophils % 1 % Neutrophils # 4.7 (1.3-7.7) k/uL Lymphocytes # 1.9 (1.0-4.8) k/uL Monocytes # 0.3 (0-1.0) k/uL Eosinophils # 0.2 (0-0.7) k/uL Basophils # 0.0 (0-0.2) k/uL Macrocytosis Slight PT 11.2 (9.0-12.0) sec INR 1.0 (<1.2) APTT 27.4 (22.0-30.0) sec Sodium (137-145) mmol/L Potassium (3.5-5.1) mmol/L Chloride (98-107) mmol/L Carbon Dioxide (22-30) mmol/L Anion Gap mmol/L BUN (7-17) mg/dL Creatinine (0.52-1.04) mg/dL Est GFR (CKD-EPI)AfAm (>60 ml/min/1.73 sqM) Est GFR (CKD-EPI)NonAf (>60 ml/min/1.73 sqM) Glucose (74-99) mg/dL POC Glucose (mg/dL) (75-99) mg/dL POC Glu Account Receivable Clerk ID Calcium (8.4-10.2) mg/dL Total Bilirubin (0.2-1.3) mg/dL AST (14-36) U/L ALT (4-34) U/L Alkaline Phosphatase (38-126) U/L Troponin I (0.000-0.034) ng/mL Total Protein (6.3-8.2) g/dL Albumin (3.5-5.0) g/dL Urine Color Yellow Urine Appearance Cloudy H (Clear) Urine pH 5.5 (5.0-8.0) Ur Specific [place] 1.029 (1.001-1.035) Urine Protein Trace H (Negative) Urine Glucose (UA) Negative (Negative) Urine Ketones Trace H (Negative) Urine Blood Negative (Negative) Urine Nitrite Negative (Negative) Urine Bilirubin Negative (Negative) Urine Urobilinogen 2.0 (<2.0) mg/dL Ur Leukocyte Esterase Moderate H (Negative) Urine WBC 14 H (0-5) /hpf Ur Squamous Epith Cells 66 H (0-4) /hpf Urine Bacteria Rare H (None) /hpf Urine Mucus Occasional H (None) /hpf Urine Opiates Screen Not Detected (NotDetected) Ur Oxycodone Screen Not Detected (NotDetected) Urine Methadone Screen Not Detected (NotDetected) Ur Propoxyphene Screen Not Detected (NotDetected) Ur Barbiturates Screen Not Detected (NotDetected) U Tricyclic Antidepress Not Detected (NotDetected) Ur Phencyclidine Scrn Not Detected (NotDetected) Ur Amphetamines Screen Detected H (NotDetected) U Methamphetamines Scrn Not Detected (NotDetected) U Benzodiazepines Scrn Not Detected (NotDetected) Urine Cocaine Screen Not Detected (NotDetected) U Marijuana (THC) Screen Not Detected (NotDetected) Serum Alcohol mg/dL 08/01/21 08/01/21 08/01/21 Range/Units 22:00 22:00 22:30 WBC (3.8-10.6) k/uL RBC (3.80-5.40) m/uL Hgb (11.4-16.0) gm/dL Hct (34.0-46.0) % MCV (80.0-100.0) fL MCH (25.0-35.0) pg MCHC (31.0-37.0) g/dL RDW (11.5-15.5) % Plt Count (150-450) k/uL MPV Neutrophils % % Lymphocytes % % Monocytes % % Eosinophils % % Basophils % % Neutrophils # (1.3-7.7) k/uL Lymphocytes # (1.0-4.8) k/uL Monocytes # (0-1.0) k/uL Eosinophils # (0-0.7) k/uL Basophils # (0-0.2) k/uL Macrocytosis PT (9.0-12.0) sec INR (<1.2) APTT (22.0-30.0) sec Sodium 136 L (137-145) mmol/L Potassium 4.7 (3.5-5.1) mmol/L Chloride 104 (98-107) mmol/L Carbon Dioxide 25 (22-30) mmol/L Anion Gap 7 mmol/L BUN 17 (7-17) mg/dL Creatinine 0.57 (0.52-1.04) mg/dL Est GFR (CKD-EPI)AfAm >90 (>60 ml/min/1.73 sqM) Est GFR (CKD-EPI)NonAf >90 (>60 ml/min/1.73 sqM) Glucose 100 H (74-99) mg/dL POC Glucose (mg/dL) 96 (75-99) mg/dL POC Glu Account Receivable Clerk ID Rupali Black Calcium 9.2 (8.4-10.2) mg/dL Total Bilirubin 0.5 (0.2-1.3) mg/dL AST 115 H (14-36) U/L ALT 49 H (4-34) U/L Alkaline Phosphatase 117 (38-126) U/L Troponin I <0.012 (0.000-0.034) ng/mL Total Protein 6.2 L (6.3-8.2) g/dL Albumin 3.6 (3.5-5.0) g/dL Urine Color Urine Appearance (Clear) Urine pH (5.0-8.0) Ur Specific [place] (1.001-1.035) Urine Protein (Negative) Urine Glucose (UA) (Negative) Urine Ketones (Negative) Urine Blood (Negative) Urine Nitrite (Negative) Urine Bilirubin (Negative) Urine Urobilinogen (<2.0) mg/dL Ur Leukocyte Esterase (Negative) Urine WBC (0-5) /hpf Ur Squamous Epith Cells (0-4) /hpf Urine Bacteria (None) /hpf Urine Mucus (None) /hpf Urine Opiates Screen (NotDetected) Ur Oxycodone Screen (NotDetected) Urine Methadone Screen (NotDetected) Ur Propoxyphene Screen (NotDetected) Ur Barbiturates Screen (NotDetected) U Tricyclic Antidepress (NotDetected) Ur Phencyclidine Scrn (NotDetected) Ur Amphetamines Screen (NotDetected) U Methamphetamines Scrn (NotDetected) U Benzodiazepines Scrn (NotDetected) Urine Cocaine Screen (NotDetected) U Marijuana (THC) Screen (NotDetected) Serum Alcohol <10 mg/dL Disposition Clinical Impression: Neuropathy, Subjective cognitive impairment Disposition: HOME SELF-CARE Condition: Stable Instructions (If sedation given, give patient instructions): Altered Mental St atus (ED) Additional Instructions: I recommend you follow up with your primary care doctor within 2-4 days. You may need to be referred to a neurologist for possible MRI. Return to the emergency room for any new or worsening symptoms. I recommend that you don't drive at this time Is patient prescribed a controlled substance at d/c from ED?: No Referrals: Terrance Alfredo MD [Primary Care Provider] - 1-2 days Time of Disposition: 01:15
[2021-08-01 23:14] LABS: Basophils % (A) 1 %; Eosinophils # (A) 0.2 k/uL (0-0.7); Eosinophils % (A) 3 %; HCT 41.3 % (34.0-46.0); HGB 13.1 gm/dL (11.4-16.0); Lymphocytes # (A) 1.9 k/uL (1.0-4.8); Lymphocytes % (A) 25 %; MCH 32.3 pg (25.0-35.0); MCHC 31.9 g/dL (31.0-37.0); MCV 101.4 fL (80.0-100.0); Macrocytosis Slight; Mean Platelet Volume 7.2; Monocytes # (A) 0.3 k/uL (0-1.0); Monocytes % (A) 4 %; Neutrophils # (A) 4.7 k/uL (1.3-7.7); Neutrophils % (A) 65 %; Platelet Count 269 k/uL (150-450); RBC 4.07 m/uL (3.80-5.40); RDW 15.4 % (11.5-15.5); WBC 7.3 k/uL (3.8-10.6)
[2021-08-01 23:27] LABS: Partial Thromboplastin Time 27.4 sec (22.0-30.0); Prothrombin Time 11.2 sec (9.0-12.0)
[2021-08-01 23:30] LABS: ALT 49 U/L (4-34); AST 115 U/L (14-36); African American GFR (CKD) >90 (>60 ml/min/1.73 sqM); Albumin 3.6 g/dL (3.5-5.0); Alcohol <10 mg/dL; Alkaline Phosphatase 117 U/L (38-126); Anion Gap 7 mmol/L; Blood Urea Nitrogen 17 mg/dL (7-17); Calcium 9.2 mg/dL (8.4-10.2); Carbon Dioxide 25 mmol/L (22-30); Chloride 104 mmol/L (98-107); Glucose 100 mg/dL (74-99); Non-African American GFR(CKD) >90 (>60 ml/min/1.73 sqM); Potassium 4.7 mmol/L (3.5-5.1); Sodium 136 mmol/L (137-145); Total Bilirubin 0.5 mg/dL (0.2-1.3); Total Protein 6.2 g/dL (6.3-8.2)
[2021-08-02 01:35] VITALS: BP 115/81; PULSE 75; RESP 16
== END 2021-08-02 01:35 | disposition home or self-care (01) ==
LOC: EC 19:36 → SUPCPDRO 19:36 → EC 08-02 01:35
DX: G62.9 Polyneuropathy, unspecified (principal); R41.89 Other symptoms and signs involving cognitive functions and awareness; I10 Essential (primary) hypertension; F17.200 Nicotine dependence, unspecified, uncomplicated; Z79.899 Other long term (current) drug therapy
CPT/HCPCS: 36415; 93005; 80053; 84484; 85025; 85610; 85730; 81001; 80306; 87086; 71046; 70450; 99284; G0480; 80320

== ENCOUNTER → 2021-10-21 | Outpatient (CLI) | payer OTHER | END | disposition home or self-care (01) | LOC: LABMAIN 17:42 | PROVIDERS: ATTEND Family Medicine | DX: E11.21 Type 2 diabetes mellitus with diabetic nephropathy (principal) | CPT/HCPCS: 83036 ==

== ENCOUNTER 2023-09-27 21:18 | Emergency (ER) | payer OTHER ==
[2023-09-27 23:52] LABS: Anisocytosis Slight; Basophils # (A) 0.1 k/uL (0-0.2); Basophils % (A) 1 %; Eosinophils # (A) 0.2 k/uL (0-0.7); Eosinophils % (A) 3 %; HGB 12.9 gm/dL (11.4-16.0); Lymphocytes # (A) 2.3 k/uL (1.0-4.8); Lymphocytes % (A) 37 %; MCH 29.5 pg (25.0-35.0); MCV 89.5 fL (80.0-100.0); Mean Platelet Volume 7.7; Monocytes # (A) 0.5 k/uL (0-1.0); Monocytes % (A) 8 %; Neutrophils % (A) 49 %; Platelet Count 243 k/uL (150-450); RBC 4.36 m/uL (3.80-5.40); RDW 19.5 % (11.5-15.5); WBC 6.1 k/uL (3.8-10.6)
[2023-09-28 00:07] LABS: Amorphous Sediment,Urine Occasional /hpf; Appearance,Urine Clear (Clear); Bilirubin,Urine 1+ (Negative); Blood,Urine Small (Negative); Color,Urine Yellow; Glucose,Urine (UA) Negative (Negative); Hyaline Casts,Urine 1 /lpf (0-2); Ketones,Urine Negative (Negative); Leukocyte Esterase,Urine Negative (Negative); Mucus,Urine Many /hpf; Nitrite,Urine Negative (Negative); Protein,Urine Trace (Negative); RBC,Urine 2 /hpf (0-5); Specific Gravity,Urine 1.019 (1.001-1.035); Squamous Epithelial Cell,Urine 4 /hpf (0-4); WBC,Urine 4 /hpf (0-5)
[2023-09-28 00:15] LABS: Potassium 4.6 mmol/L (3.5-5.1)
[2023-09-28 00:16] LABS: ALT 29 U/L (4-34); AST 72 U/L (14-36); African American GFR (CKD) >90 (>60 ml/min/1.73 sqM); Albumin 4.4 g/dL (3.5-5.0); Alkaline Phosphatase 215 U/L (38-126); Anion Gap 11 mmol/L; Blood Urea Nitrogen 3 mg/dL (7-17); Calcium 9.2 mg/dL (8.4-10.2); Carbon Dioxide 22 mmol/L (22-30); Chloride 104 mmol/L (98-107); Glucose 117 mg/dL (74-99); Non-African American GFR(CKD) >90 (>60 ml/min/1.73 sqM); Sodium 137 mmol/L (137-145); Total Bilirubin 1.1 mg/dL (0.2-1.3); Total Protein 7.8 g/dL (6.3-8.2)
--- NOTE | 2023-09-28 00:43 | CT ---
EXAMINATION TYPE: CT abdomen pelvis wo con DATE OF EXAM: 09/27/2023 HISTORY: pt arrives to ED from home for R flank pain and N/V x5 days CT DLP: 480.7 mGycm. Automated Exposure Control for Dose Reduction was Utilized. TECHNIQUE: CT scan of the abdomen and pelvis is performed without oral or IV contrast. COMPARISON: Most recent prior CT August 15, 2016 FINDINGS: Within the limitations of a non-contrast study, the following observations are made. LUNG BASES: Left-sided breast implant is partially imaged. Mild left basilar linear scarring and/or a telectasis. LIVER/GB: Hepatomegaly it is now present. Liver remains heterogeneously hypodense consistent with dif fuse fatty infiltrative hepatocellular disease. PANCREAS: No significant abnormality is seen. SPLEEN: Splenomegaly now seen measuring 15.2 cm long axis coronal image 55. ADRENALS: No significant abnormality is seen. KIDNEYS: No renal calculi seen bilaterally. No hydronephrosis seen bilaterally. No intraluminal calcu li in poorly distended bladder. BOWEL: Suboptimal evaluation without enteric contrast. No abnormal small or large bowel dilatation. N ormal gas-filled appendix is felt present. GENITAL ORGANS: Anteverted uterus. Rectangular shaped structure in the vaginal canal likely reflects tampon. LYMPH NODES: Mild fat stranding in the right lower quadrant/upper pelvis mesentery. OSSEOUS STRUCTURES: No significant abnormality is seen. OTHER: No significant additional abnormality is seen. IMPRESSION: 1. No renal stones or hydronephrosis seen bilaterally. Mild fat stranding in the inferior mesentery c entered right lower quadrant. Consider edema or inflammatory change at this level posteriorly from th e terminal ileum. 2. Hepatosplenomegaly now seen. Consider nonemergent follow-up to further evaluate. Diffuse fatty inf iltrative hepatocellular disease redemonstrated.
[2023-09-28] MEDS: SODIUM CHLORIDE 0.9% 1,000 ML IV STA (01:33)
[2023-09-28] MEDS: METOCLOPRAMIDE 5 MG/ML 2 ML VIAL IVP STA (01:34)
[2023-09-28] MEDS: MORPHINE SULFATE 4 MG/ML SYRINGE IVP STA (01:35)
[2023-09-28 01:42] VITALS: RESP 16; TEMP 98.1
--- NOTE | 2023-09-28 01:53 | ED ---
Female Urogenital HPI - General Chief complaint: Urogenital Stated complaint: kidney infection Time Seen by Provider: 09/27/23 23:30 Source: patient Mode of arrival: ambulatory Limitations: no limitations - History of Present Illness Initial comments: 53-year-old female presenting to the ED with complaints of back pain and abdominal pain. Patient is a vague historian. Reports for the past week or so has had pain of her left lower back and is concerned that she may have a kidney infection. Also notes some abdominal pain. Denies any changes in bowel or bladder habits. No fever or chills. No chest pains or shortness of breath. - Related Data Home Medications Medication Instructions Recorded Confirmed Omeprazole 40 mg PO HS 08/15/16 08/01/21 diphenhydrAMINE HCL [Benadryl] 50 mg PO BID 02/25/21 08/01/21 traMADol HCL [Ultram] 50 - 100 mg PO Q4-6H PRN 02/25/21 08/01/21 Echinacea + Vit C 1 tab PO HS 08/01/21 08/01/21 Ondansetron Odt [Zofran Odt] 4 mg PO DAILY PRN 08/01/21 08/01/21 Previous Rx's Medication Instructions Recorded Amoxic-Pot Clav 875-125Mg 1 tab PO Q12HR 7 Days #14 tab 09/28/23 [Augmentin 875-125] Allergies Allergy/AdvReac Type Severity Reaction Status Date / Time NSAIDS (Non-Steroidal AdvReac Uable to Verified 09/27/23 21:36 Anti-Inflamma take BLOOD THINERS AdvReac CAN NOT Uncoded 09/27/23 21:36 HAVE Review of Systems ROS Statement: Those systems with pertinent positive or pertinent negative responses have been documented in the HPI. ROS Other: All systems not noted in ROS Statement are negative. Past Medical History Past Medical History: Blood Disorder, GI Bleed, Hypertension, Pneumonia Additional Past Medical History / Comment(s): Past hx HTN. c/o nausea, abd pain, diarrhea for 2 months, lost 26#. 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 History of Any Multi-Drug Resistant Organisms: None Reported Past Surgical History: Section, Tonsillectomy Past Anesthesia/Blood Transfusion Reactions: No Reported Reaction Past Psychological History: No Psychological Hx Reported Smoking Status: Current every day smoker Past Alcohol Use History: Occasional Past Drug Use History: None Reported - Past Family History Mother Family Medical History: Blood Disorder Additional Family Medical History / Comment(s): clotting disorder General Exam Limitations: no limitations General appearance: alert, in no apparent distress Eye exam: Present: normal appearance Neck exam: Present: normal inspection Respiratory exam: Present: normal lung sounds bilaterally Cardiovascular Exam: Present: regular rate GI/Abdominal exam: Present: soft (Diffuse abdominal tenderness to palpation. Left CVA tenderness to percussion. No rebound guarding or rigidity.) Back exam: Present: normal inspection Neurological exam: Present: alert, oriented X3 Skin exam: Present: warm, dry Course Vital Signs 09/27/23 09/28/23 21:34 00:00 Temperature 99.7 F H 98.1 F Pulse Rate 99 81 Respiratory 18 16 Rate Blood Pressure 149/82 94/55 O2 Sat by Pulse 97 93 L Oximetry Medical Decision Making - Medical Decision Making Was pt. sent in by a medical professional or institution (, PA, INTERNATIONAL GUEST COORDINATOR, urgent care, hospital, or retirement...) When possible be specific @ -No Did you speak to anyone other than the patient for history (EMS, parent, family, police, friend...)? What history was obtained from this source @ -No Did you review nursing and triage notes (agree or disagree)? Why? @ -I reviewed and agree with nursing and triage notes Were old charts reviewed (outside hosp., previous admission, EMS record, old EKG, old radiological studies, urgent care reports/EKG's, retirement records)? Report findings @ -No old charts were reviewed Differential Diagnosis (chest pain, altered mental status, abdominal pain women, abdominal pain men, vaginal bleeding, weakness, fever, dyspnea, syncope, headache, dizziness, GI bleed, back pain, seizure, CVA, palpatations, mental health, musculoskeletal)? @ -Differential Abdominal Pain Women: Appendicitis, Cholecystitis, diverticulosis, ischemic bowel, pancreatitis, hepatitis, UTI, gastroenteritis, AAA, incarcerated hernia, bowel obstruction, constipation, inflammatory bowel, hepatitis, peptic ulcer disease, splenic infarction, perforated viscus, vulvitis, ovarian torsion, PID, kidney stone, placenta abruption, this is not meant to be an all-inclusive list EKG interpreted by me (3pts min.). @ -None X-rays interpreted by me (1pt min.). @ -None done CT interpreted by me (1pt min.). @ -CT abdomen pelvis interpreted me which does show some findings consistent with terminal ileitis. U/S interpreted by me (1pt. min.). @ -None done What testing was considered but not performed or refused? (CT, X-rays, U/S, labs)? Why? @ -None What meds were considered but not given or refused? Why? @ -None Did you discuss the management of the patient with other professionals (professionals i.e. , PA, INTERNATIONAL GUEST COORDINATOR, lab, RT, psych nurse, social media director, community health nurse, teacher, tactical deception plans officer, insurance case manager)? Give summary @ -No Was smoking cessation discussed for >3mins.? @ -No Was critical care preformed (if so, how long)? @ -No Were there social determinants of health that impacted care today? How? (Homelessness, low income, unemployed, alcoholism, drug addiction, transportation, low edu. Level, literacy, decrease access to med. care, longterm, rehab)? @ -No Was there de-escalation of care discussed even if they declined (Discuss DNR or withdrawal of care, Hospice)? DNR status @ -No What co-morbidities impacted this encounter? (DM, HTN, Smoking, COPD, CAD, Cancer, CVA, ARF, Chemo, Hep., AIDS, mental health diagnosis, sleep apnea, m orbid obesity)? @ -None Was patient admitted / discharged? Hospital course, mention meds given and route, prescriptions, significant lab abnormalities, going to OR and other pertinent info. @ -Discharge 53-year-old female presents to the ED with complaints of back pain and initially worried she might have a kidney infection and some abdominal pain for the past week or so. CBC reveals no elevation white blood cell count. Chemistry panel is largely unremarkable. Has some slight elevations at AST at 72, alk phos at 215. UA shows no significant evidence of infection. CT abdomen pelvis was reviewed which did show some findings consistent with terminal ileitis. Patient reevaluated after providing analgesia and states pain is at a 0. Discharged home in stable condition with starter packs for Augmentin and prescription for Augmentin. Patient also requested short course of tramadol as well as she notes history of liver disease and kidney disease and was advised to stay away from NSAIDs/Tylenol. Discharged home in stable condition. Discussed return precauti ons with patient who verbalized agreement. Patient was offered referral to see packaging sales consultant here in town however reports she has her own at [facility] and states that she will follow-up with them. Undiagnosed new problem with uncertain prognosis? @ -No Drug Therapy requiring intensive monitoring for toxicity (Heparin, Nitro, Insulin, Cardizem)? @ -No Were any procedures done? @ -No Diagnosis/symptom? @ -Terminal ileitis Acute, or Chronic, or Acute on Chronic? @ -Acute Uncomplicated (without systemic symptoms) or Complicated (systemic symptoms)? @ -Uncomplicated Side effects of treatment? @ -No Exacerbation, Progression, or Severe Exacerbation? @ -No Poses a threat to life or bodily function? How? (Chest pain, USA, VT, pneumonia, PE, COPD, DKA, ARF, appy, cholecystitis, CVA, Diverticulitis, Homicidal, Suicidal, threat to staff... and all critical care pts) @ -No - Lab Data Result diagrams: 09/27/23 23:30 09/27/23 23:30 Lab Results 09/27/23 09/27/23 09/27/23 Range/Units 23:30 23:30 23:30 WBC 6.1 (3.8-10.6) k/uL RBC 4.36 (3.80-5.40) m/uL Hgb 12.9 (11.4-16.0) gm/dL Hct 39.0 (34.0-46.0) % MCV 89.5 (80.0-100.0) fL MCH 29.5 (25.0-35.0) pg MCHC 33.0 (31.0-37.0) g/dL RDW 19.5 H (11.5-15.5) % Plt Count 243 (150-450) k/uL MPV 7.7 Neutrophils % 49 % Lymphocytes % 37 % Monocytes % 8 % Eosinophils % 3 % Basophils % 1 % Neutrophils # 3.0 (1.3-7.7) k/uL Lymphocytes # 2.3 (1.0-4.8) k/uL Monocytes # 0.5 (0-1.0) k/uL Eosinophils # 0.2 (0-0.7) k/uL Basophils # 0.1 (0-0.2) k/uL Anisocytosis Slight Sodium 137 (137-145) mmol/L Potassium 4.6 (3.5-5.1) mmol/L Chloride 104 (98-107) mmol/L Carbon Dioxide 22 (22-30) mmol/L Anion Gap 11 mmol/L BUN 3 L (7-17) mg/dL Creatinine 0.61 (0.52-1.04) mg/dL Est GFR (CKD-EPI)AfAm >90 (>60 ml/min/1.73 sqM) Est GFR (CKD-EPI)NonAf >90 (>60 ml/min/1.73 sqM) Glucose 117 H (74-99) mg/dL Calcium 9.2 (8.4-10.2) mg/dL Total Bilirubin 1.1 (0.2-1.3) mg/dL AST 72 H (14-36) U/L ALT 29 (4-34) U/L Alkaline Phosphatase 215 H (38-126) U/L Total Protein 7.8 (6.3-8.2) g/dL Albumin 4.4 (3.5-5.0) g/dL Urine Color Yellow Urine Appearance Clear (Clear) Urine pH 6.0 (5.0-8.0) Ur Specific [place] 1.019 (1.001-1.035) Urine Protein Trace H (Negative) Urine Glucose (UA) Negative (Negative) Urine Ketones Negative (Negative) Urine Blood Small H (Negative) Urine Nitrite Negative (Negative) Urine Bilirubin 1+ H (Negative) Urine Urobilinogen 3.0 (<2.0) mg/dL Ur Leukocyte Esterase Negative (Negative) Urine RBC 2 (0-5) /hpf Urine WBC 4 (0-5) /hpf Ur Squamous Epith Cells 4 (0-4) /hpf Amorphous Sediment Occasional H (None) /hpf Hyaline Casts 1 (0-2) /lpf Urine Mucus Many H (None) /hpf Disposition Clinical Impression: Terminal ileitis Disposition: HOME SELF-CARE Condition: Good Additional Instructions: Please return to the Emergency Department if symptoms worsen or any other con cerns. Please follow-up with your PCP and packaging sales consultant. Prescriptions: Amoxic-Pot Clav 875-125Mg [Augmentin 875-125] 1 tab PO Q12HR 7 Days #14 tab Is patient prescribed a controlled substance at d/c from ED?: No Referrals: None,Stated [Primary Care Provider] - 1-2 days Time of Disposition: 02:49
[2023-09-28] MEDS: AMOXIC-POT CLAV 875MG STARTER PACK 2 TAB BTL PO STA (03:23)
[2023-09-28] MEDS: traMADol 50 MG STARTER PACK 3 TAB BTL PO STA (03:24)
[2023-09-28 03:31] VITALS: BP 111/69; PULSE 74
== END 2023-09-28 03:32 | disposition home or self-care (01) ==
LOC: EC 21:18
DX: K50.00 Crohn's disease of small intestine without complications (principal); R74.01 Elevation of levels of liver transaminase levels; R74.8 Abnormal levels of other serum enzymes; F17.200 Nicotine dependence, unspecified, uncomplicated; Z88.3 Allergy status to other anti-infective agents; Z88.6 Allergy status to analgesic agent
CPT/HCPCS: 36415; 74176; 80053; 81001; 85025; 96361; 96374; 96375; 99284

== ENCOUNTER 2023-12-03 22:28 | Emergency (ER) | payer OTHER ==
--- NOTE | 2023-12-03 23:49 | ED ---
Chest Pain HPI - General Chief Complaint: Chest Pain Stated Complaint: Indigestion, Low Blood pressure Time Seen by Provider: 12/03/23 22:41 Source: patient Mode of arrival: ambulatory Limitations: no limitations - History of Present Illness Initial Comments: 53-year-old female with a past medical history significant for liver disease per patient presenting to the ED with complaints of lightheadedness. Patient reports over the past few days has been feeling lightheaded reporting that she feels as if she is going to pass out. Does note some associated nausea with this and occasional dry cough. States that she has pain in the middle of her chest as well however notes that it is only there if she touches it or moves her body a certain way. Otherwise denies chest pain. Denies shortness of breath. Denies fever or chills. Denies congestion or sore throat. No changes in bowel or bladder habits. No other complaints at this time. - Related Data Home Medications Medication Instructions Recorded Confirmed Omeprazole 40 mg PO HS 08/15/16 08/01/21 diphenhydrAMINE HCL [Benadryl] 50 mg PO BID 02/25/21 08/01/21 traMADol HCL [Ultram] 50 - 100 mg PO Q4-6H PRN 02/25/21 08/01/21 Echinacea + Vit C 1 tab PO HS 08/01/21 08/01/21 Ondansetron Odt [Zofran Odt] 4 mg PO DAILY PRN 08/01/21 08/01/21 Previous Rx's Medication Instructions Recorded Amoxic-Pot Clav 875-125Mg 1 tab PO Q12HR 7 Days #14 tab 09/28/23 [Augmentin 875-125] Ondansetron Odt [Zofran Odt] 4 mg PO Q8HR PRN #10 tab 12/04/23 Allergies Allergy/AdvReac Type Severity Reaction Status Date / Time NSAIDS (Non-Steroidal AdvReac Uable to Verified 12/03/23 22:35 Anti-Inflamma take BLOOD THINERS AdvReac CAN NOT Uncoded 12/03/23 22:35 HAVE Review of Systems ROS Statement: Those systems with pertinent positive or pertinent negative responses have been documented in the HPI. ROS Other: All systems not noted in ROS Statement are negative. Past Medical History Past Medical History: Blood Disorder, GI Bleed, Hypertension, Pneumonia Additional Past Medical History / Comment(s): Past hx HTN. c/o nausea, abd pain, diarrhea for 2 months, lost 26#. 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 History of Any Multi-Drug Resistant Organisms: None Reported Past Surgical History: Section, Tonsillectomy Past Anesthesia/Blood Transfusion Reactions: No Reported Reaction Past Psychological History: No Psychological Hx Reported Smoking Status: Current every day smoker Past Alcohol Use History: Occasional Past Drug Use History: None Reported - Past Family History Mother Family Medical History: Blood Disorder Additional Family Medical History / Comment(s): clotting disorder General Exam Limitations: no limitations General appearance: alert, in no apparent distress Eye exam: Present: normal appearance Neck exam: Present: normal inspection Respiratory exam: Present: normal lung sounds bilaterally, other (Reproducible TTP of the sternum) Cardiovascular Exam: Present: regular rate GI/Abdominal exam: Present: soft, normal bowel sounds. Absent: distended, tenderness, guarding, rebound, rigid Neurological exam: Present: alert, oriented X3 Skin exam: Present: warm, dry Course Vital Signs 12/03/23 12/03/23 12/04/23 22:31 22:45 02:55 Temperature 100.2 F H Pulse Rate 107 H 65 78 Respiratory 22 18 18 Rate Blood Pressure 154/79 122/74 125/78 O2 Sat by Pulse 99 98 97 Oximetry 12/04/23 03:35 Temperature Pulse Rate 69 Respiratory 19 Rate Blood Pressure 107/61 O2 Sat by Pulse 96 Oximetry Chest Pain MDM - MDM Was pt. sent in by a medical professional or institution (, PA, DICTATING MACHINE TYPIST, urgent care, hospital, or fci...) When possible be specific @ -No Did you speak to anyone other than the patient for history (EMS, parent, family, police, friend...)? What history was obtained from this source @ -No Did you review nursing and triage notes (agree or disagree)? Why? @ -I reviewed and agree with nursing and triage notes Were old charts reviewed (outside hosp., previous admission, EMS record, old EKG, old radiological studies, urgent care reports/EKG's, fci records)? Report findings @ -No old charts were reviewed Differential Diagnosis (chest pain, altered mental status, abdominal pain women, abdominal pain men, vaginal bleeding, weakness, fever, dyspnea, syncope, headache, dizziness, GI bleed, back pain, seizure, CVA, palpatations, mental health, musculoskeletal)? @ -Differential Chest Pain: Stable Angina, Unstable Angina, STEMI, NSTEMI Aortic Dissection, Pneumothorax, Musculoskeletal, Esophageal Spasm GERD, Cholecystitis, Pancreatitis, Zoster, this is not meant to be an all-inclusive list. Differential Fever: Pneumonia, viral URI, endocarditis, myocarditis, pericarditis, otitis, sinusitis, peritonsillar Abscess, retropharyngeal Abscess, epiglottitis, peritonitis, appendicitis, Mattie cystitis, diverticulitis, hepatitis, colitis, UTI, PID, TOA, pyelonephritis, prostatitis, epididymitis, meningitis, encephalitis, pulmonary embolism, CVA, thyroid storm, pancreatitis, adrenal crisis, cavernous sinus thrombosis, this is not meant to be an all-inclusive list. EKG interpreted by me (3pts min.). @ -EKG interpreted by me showing a sinus rhythm at [address] or T wave changes. KS 143, QRS 90, QT/QTc 351/398. X-rays interpreted by me (1pt min.). @ -Chest x-ray interpreted me which revealed no evidence of acute finding. CT interpreted by me (1pt min.). @ -None done U/S interpreted by me (1pt. min.). @ -None done What testing was considered but not performed or refused? (CT, X-rays, U/S, labs)? Why? @ -None What meds were considered but not given or refused? Why? @ -None Did you discuss the management of the patient with other professionals (professionals i.e. , PA, DICTATING MACHINE TYPIST, lab, RT, psych nurse, social media editor, adjunct business instructor, teacher, records officer, case management associate)? Give summary @ -No Was smoking cessation discussed for >3mins.? @ -No Was critical care preformed (if so, how long)? @ -No Were there social determinants of health that impacted care today? How? (Homelessness, low income, unemployed, alcoholism, drug addiction, transportation, low edu. Level, literacy, decrease access to med. care, group home, rehab)? @ -No Was there de-escalation of care discussed even if they declined (Discuss DNR or withdrawal of care, Hospice)? DNR status @ -No What co-morbidities impacted this encounter? (DM, HTN, Smoking, COPD, CAD, Cancer, CVA, ARF, Chemo, Hep., AIDS, mental health diagnosis, sleep apnea, morbid obesity)? @ -None Was patient admitted / discharged? Hospital course, mention meds given and route, prescriptions, significant lab abnormalities, going to OR and other pertinent info. @ -Discharge 53-year-old female presenting to the ED with complaints of lightheadedness and nausea. Is also notes some chest pain and dry cough. Pain is in the middle of her chest which is reproducible on palpation. EKG showed a normal sinus rhythm without acute changes. Laboratory studies reviewed. CBC largely unremarkable. CMP largely unremarkable other than some transaminitis with AST at 44, alk phos 162. Troponin undetectable. Serology panel unremarkable. Patient would not provide us a urine sample at this time. Undiagnosed new problem with uncertain prognosis? @ -No Drug Therapy requiring intensive monitoring for toxicity (Heparin, Nitro, Insulin, Cardizem)? @ -No Were any procedures done? @ -No Diagnosis/symptom? @ -Lightheadedness Acute, or Chronic, or Acute on Chronic? @ -Acute Uncomplicated (without systemic symptoms) or Complicated (systemic symptoms)? @ -Uncomplicated Side effects of treatment? @ -No Exacerbation, Progression, or Severe Exacerbation? @ -No Poses a threat to life or bodily function? How? (Chest pain, [place], [place], pneumonia, PE, COPD, DKA, ARF, appy, cholecystitis, CVA, Diverticulitis, Homicidal, Suicidal, threat to staff... and all critical care pts) @ -No Disposition Clinical Impression: Lightheaded Disposition: HOME SELF-CARE Condition: Good Instructions (If sedation given, give patient instructions): Costochondritis (ED) Additional Instructions: Please return to the Emergency Department if symptoms worsen or any other concerns. Please follow-up with your primary care provider. Prescriptions: Ondansetron Odt [Zofran Odt] 4 mg PO Q8HR PRN #10 tab PRN Reason: Nausea Is patient prescribed a controlled substance at d/c from ED?: No Referrals: None,Stated [Primary Care Provider] - 1-2 days Time of Disposition: 04:00
--- NOTE | 2023-12-03 23:51 | XR ---
EXAMINATION TYPE: XR chest 2V DATE OF EXAM: 12/03/2023 COMPARISON: Chest x-ray August 01, 2021 HISTORY: Chest pain with indigestion for 2 days TECHNIQUE: Frontal and lateral views of the chest are obtained. FINDINGS: Overlying bra strap. There is no suspicious focal air space opacity, pleural effusion, or pneumothorax seen. The cardiac silhouette size is stable and within normal limits. The osseous str uctures are intact. IMPRESSION: No acute process.
[2023-12-03 23:56] LABS: Anisocytosis Slight; Basophils % (A) 0 %; Eosinophils # (A) 0.1 k/uL (0-0.7); Eosinophils % (A) 2 %; HCT 37.3 % (34.0-46.0); HGB 11.8 gm/dL (11.4-16.0); Lymphocytes # (A) 1.7 k/uL (1.0-4.8); Lymphocytes % (A) 30 %; MCH 27.3 pg (25.0-35.0); MCHC 31.6 g/dL (31.0-37.0); MCV 86.4 fL (80.0-100.0); Mean Platelet Volume 9.4; Monocytes # (A) 0.2 k/uL (0-1.0); Monocytes % (A) 3 %; Neutrophils # (A) 3.4 k/uL (1.3-7.7); Neutrophils % (A) 62 %; Platelet Count 109 k/uL (150-450); RBC 4.32 m/uL (3.80-5.40); RDW 17.2 % (11.5-15.5); WBC 5.5 k/uL (3.8-10.6)
[2023-12-04 00:07] LABS: ALT 24 U/L (4-34); AST 44 U/L (14-36); African American GFR (CKD) >90 (>60 ml/min/1.73 sqM); Albumin 4.1 g/dL (3.5-5.0); Alkaline Phosphatase 162 U/L (38-126); Amylase 43 U/L (30-110); Anion Gap 10 mmol/L; Blood Urea Nitrogen 10 mg/dL (7-17); Calcium 9.2 mg/dL (8.4-10.2); Carbon Dioxide 19 mmol/L (22-30); Chloride 110 mmol/L (98-107); Glucose 121 mg/dL (74-99); Lipase 49 U/L (23-300); Non-African American GFR(CKD) >90 (>60 ml/min/1.73 sqM); Potassium 4.2 mmol/L (3.5-5.1); Sodium 139 mmol/L (137-145); Total Bilirubin 0.9 mg/dL (0.2-1.3); Total Protein 6.9 g/dL (6.3-8.2)
[2023-12-04 00:11] LABS: INR 1.2 (<1.2); Partial Thromboplastin Time 33.4 sec (22.0-30.0); Prothrombin Time 12.8 sec (10.0-12.5)
[2023-12-04] MEDS: ONDANSETRON 4 MG/2 ML VIAL IVP STA (02:51)
[2023-12-04] MEDS: SODIUM CHLORIDE 0.9% 1,000 ML IV STA (02:53)
[2023-12-04] MEDS: ACETAMINOPHEN TAB 500 MG TAB PO STA (02:54)
[2023-12-04 03:38] VITALS: BP 107/61; PULSE 69; RESP 19
[2023-12-04 04:11] VITALS: TEMP 98.6
[2023-12-04 04:28] LABS: Appearance,Urine Cloudy (Clear); Bacteria,Urine Rare /hpf; Bilirubin,Urine Negative (Negative); Blood,Urine Negative (Negative); Color,Urine Yellow; Glucose,Urine (UA) Negative (Negative); Hyaline Casts,Urine 1 /lpf (0-2); Ketones,Urine Negative (Negative); Leukocyte Esterase,Urine Negative (Negative); Mucus,Urine Occasional /hpf; Nitrite,Urine Negative (Negative); PH, Urine 7.5 (5.0-8.0); Protein,Urine Trace (Negative); RBC,Urine <1 /hpf (0-5); Specific Gravity,Urine 1.023 (1.001-1.035); Squamous Epithelial Cell,Urine 29 /hpf (0-4); WBC,Urine 1 /hpf (0-5)
== END 2023-12-04 04:16 | disposition home or self-care (01) ==
LOC: EC 22:28
DX: R42 Dizziness and giddiness (principal); F17.200 Nicotine dependence, unspecified, uncomplicated; Z88.6 Allergy status to analgesic agent; Z88.8 Allergy status to other drugs, medicaments and biological substances
CPT/HCPCS: 36415; 93005; 80053; 82150; 83690; 83735; 84484; 85025; 85610; 85730; 81001; 87636; 71046; 99285; 96374; 96361; J2405

== ENCOUNTER 2024-02-19 07:06 | Observation (INO) | payer OTHER ==
--- NOTE | 2024-02-19 08:00 | ED ---
General Adult HPI - General Chief complaint: Arrhythmia/Palpitations Stated complaint: Hypertension Time Seen by Provider: 02/19/24 07:35 Source: patient, EMS, RN notes reviewed, old records reviewed Mode of arrival: EMS - History of Present Illness Initial comments: Patient is a 53-year-old female who presents emergency department complaining of waking up with hypertension as well as heart palpitations. Denies any obvious ramon chest pain. Has been dealing with some left lower rib pain near "the area of my kidney." Does have a history of liver and spleen issues and is on the list for transplant. States she has been up all night and has been under more stress over the last few days as they are attempting to set up a house for her and her family. Denies any nausea or vomiting. States she feels a little bit lightheaded. Endorses heart palpitations and fast heart rate. Denies any ramon chest pain. Denies shortness of breath. Denies fevers or cough. Denies any new abdominal discomfort. No vaginal discharge or bleeding. No diarrhea. Presents for further evaluation at this time. - Related Data Home Medications Medication Instructions Recorded Confirmed diphenhydrAMINE HCL [Benadryl] 50 mg PO HS 02/25/21 02/19/24 Cyanocobalamin (Vitamin B-12) 1,000 mcg PO HS 02/19/24 02/19/24 [Vitamin B-12] Ferrous Sulfate [Feosol] 325 mg PO HS 02/19/24 02/19/24 Melatonin 5 mg PO HS 02/19/24 02/19/24 Omeprazole 40 mg PO HS 02/19/24 02/19/24 Allergies Allergy/AdvReac Type Severity Reaction Status Date / Time NSAIDS (Non-Steroidal AdvReac Uable to Verified 02/19/24 10:42 Anti-Inflamma take BLOOD THINERS AdvReac CAN NOT Uncoded 02/19/24 10:42 HAVE Review of Systems ROS Statement: Those systems with pertinent positive or pertinent negative responses have been documented in the HPI. Review of Systems: CONST: Denies fever EYES: Denies blurry vision ENT: Denies nasal congestion C/V: Endorses heart palpitations. RESP: Denies shortness of breath GI: Denies abdominal pain : Denies dysuria SKIN: Denies rash. MSK: Endorses left-sided rib/flank pain. NEURO: Denies headache ROS Other: All systems not noted in ROS Statement are negative. Past Medical History Past Medical History: Blood Disorder, GI Bleed, Hypertension, Pneumonia Additional Past Medical History / Comment(s): Past hx HTN. c/o nausea, abd pain, diarrhea for 2 months, lost 26#. 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 C.diff September 2023 History of Any Multi-Drug Resistant Organisms: C-DIFF Date of last positivie culture/infection: September 2023 Past Surgical History: Section, Tonsillectomy Additional Past Surgical History / Comment(s): splenectomy Past Anesthesia/Blood Transfusion Reactions: No Reported Reaction Past Psychological History: No Psychological Hx Reported Smoking Status: Current every day smoker Past Alcohol Use History: Occasional Past Drug Use History: Marijuana - Past Family History Mother Family Medical History: Blood Disorder Additional Family Medical History / Comment(s): clotting disorder General Exam - General Exam Comments Initial Comments: General: Appears anxious HEAD: Normal with no signs of head trauma. EYES: PERRLA, EOMI, conjunctiva normal, no discharge. ENT: Hearing grossly intact, normal oropharynx. RESPIRATORY: Clear breath sounds bilaterally. No wheezes, rales, or rhonchi. C/V: Tachycardic with a regular rhythm. S1 and S2 auscultated, no edema, peripheral pulses 2+ and intact throughout ABD: Abd is soft, nontender, nondistended EXT: Normal range of motion, no obvious deformity. Tenderness to palpation over the left lateral inferior rib cage. No obvious deformities appreciated. SKIN: No rashes or lesions observed on exposed skin. NEURO: Alert and oriented x 4. Course Vital Signs 02/19/24 02/19/24 07:22 09:56 Temperature 98.0 F Pulse Rate 114 H 131 H Respiratory 20 18 Rate Blood Pressure 155/89 174/107 O2 Sat by Pulse 98 Oximetry Medical Decision Making - Medical Decision Making Was pt. sent in by a medical professional or institution (, PA, SOIL SCIENCE PROFESSOR, urgent care, hospital, or skilled nursing...) When possible be specific @ -No Did you speak to anyone other than the patient for history (EMS, parent, family, police, friend...)? What history was obtained from this source @ -No Did you review nursing and triage notes (agree or disagree)? Why? @ -I reviewed and agree with nursing and triage notes Were old charts reviewed (outside hosp., previous admission, EMS record, old EKG, old radiological studies, urgent care reports/EKG's, skilled nursing records)? Report findings @ -Old charts reviewed including from November 2023 which showed patient had relatively normal labs at that time except for slightly elevated AST and alk phos. Differential Diagnosis (chest pain, altered mental status, abdominal pain women, abdominal pain men, vaginal bleeding, weakness, fever, dyspnea, syncope, headache, dizziness, GI bleed, back pain, seizure, CVA, palpatations, mental health, musculoskeletal)? @ -Differential Palpitations Ventricular arrhythmias, atrial arrhythmias, myocardial infarction, anemia, thyrotoxicosis, electrolyte imbalance, hypokalemia, pulmonary embolism, pulmonary disease, drugs, alcohol, anxiety, stress.... This is not meant to be an all-inclusive list. EKG interpreted by me (3pts min.). @ -As above X-rays interpreted by me (1pt min.). @ -Chest x-ray reveals no obvious acute cardiopulmonary process. CT interpreted by me (1pt min.). @ -None done U/S interpreted by me (1pt. min.). @ -None done What testing was considered but not performed or refused? (CT, X-rays, U/S, labs)? Why? @ -None What meds were considered but not given or refused? Why? @ -Considered heparin and aspirin however due to patient's past medical history and bleeding issues, will defer at this time until discussion with cardiology and hematology at patient's request. Did you discuss the management of the patient with other professionals (professionals i.e. , PA, SOIL SCIENCE PROFESSOR, lab, RT, psych nurse, social media project manager, it portfolio manager, teacher, national service officer, window caser)? Give summary @ -Spoke with ANNALISE Valiente of [facility] who accepted the admission Was smoking cessation discussed for >3mins.? @ -No Was critical care preformed (if so, how long)? @ -Yes, 35 minutes Were there social determinants of health that impacted care today? How? (Homelessness, low income, unemployed, alcoholism, drug addiction, transportation, low edu. Level, literacy, decrease access to med. care, usp, rehab)? @ -No Was there de-escalation of care discussed even if they declined (Discuss DNR or withdrawal of care, Hospice)? DNR status @ -No What co-morbidities impacted this encounter? (DM, HTN, Smoking, COPD, CAD, Cancer, CVA, ARF, Chemo, Hep., AIDS, mental health diagnosis, sleep apnea, morbid obesity)? @ -None Was patient admitted / discharged? Hospital course, mention meds given and route, prescriptions, significant lab abnormalities, going to OR and other pertinent info. @ -Patient presents with heart palpitations and some left rib cage pain. Is slightly hypertensive upon presentation. States he has a remote history of hypertension but currently not on medications. Does appear anxious. We will obtain generalized workup and cardiac workup. Patient be symptomatically treated with a small dose of Ativan as well as a lidocaine patch and an additional 500 cc fluid bolus that she already received 1 L from EMS. Patient was in agreement this plan. Symptoms seem to have started after the patient checked her blood pressure at home which did read as elevated but they cannot recall what the blood pressure was. Initial EKG shows sinus tachycardia. Chest x-ray shows no obvious acute cardiopulmonary process. Laboratory studies are remarkable for a chronic anemia with a hemoglobin of 10 as well as a chronic thrombocytopenia with a platelet count of 141. Patient's laboratory studies are remarkable for an undetectable D-dimer. Troponin is undetectable. Remainder the workup unremarkable. On reevaluation, I discussed the workup with the patient. We both agreed to obtain a 3-hour troponin at this point. She was in agreement this plan. Asymptomatic at this time. Patient began experiencing palpitations again. We did obtain an EKG and rhythm strip which did reveal patient was in A-fib with RVR. As above, I screened her for a blood clot which was within acceptable limits. Patient be started on a Cardizem drip. 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 She also refuses the aspirin at this time. She was in agreement this plan otherwise. Spoke with admitting team, [facility] ANNALISE Valiente who accepted the admission. Cardiology consulted. Undiagnosed new problem with uncertain prognosis? @ -No Drug Therapy requiring intensive monitoring for toxicity (Heparin, Nitro, Insulin, Cardizem)? @ -No Were any procedures done? @ -No Diagnosis/symptom? @ -New onset A-fib with RVR Acute, or Chronic, or Acute on Chronic? @ -Acute Uncomplicated (without systemic symptoms) or Complicated (systemic symptoms)? @ -Complicated Side effects of treatment? @ -None Exacerbation, Progression, or Severe Exacerbation] @ -No Poses a threat to life or bodily function? @ -Yes - Lab Data Result diagrams: 02/19/24 08:03 02/19/24 08:03 Lab Results 02/19/24 02/19/24 02/19/24 Range/Units 08:03 08:03 08:03 WBC 6.8 (3.8-10.6) k/uL RBC 3.75 L (3.80-5.40) m/uL Hgb 10.0 L (11.4-16.0) gm/dL Hct 30.8 L (34.0-46.0) % MCV 82.1 (80.0-100.0) fL MCH 26.6 (25.0-35.0) pg MCHC 32.4 (31.0-37.0) g/dL RDW 16.9 H (11.5-15.5) % Plt Count 141 L (150-450) k/uL MPV 8.7 Neutrophils % 72 % Lymphocytes % 20 % Monocytes % 6 % Eosinophils % 0 % Basophils % 0 % Neutrophils # 4.9 (1.3-7.7) k/uL Lymphocytes # 1.4 (1.0-4.8) k/uL Monocytes # 0.4 (0-1.0) k/uL Eosinophils # 0.0 (0-0.7) k/uL Basophils # 0.0 (0-0.2) k/uL Hypochromasia Moderate Anisocytosis Slight PT 13.0 H (10.0-12.5) sec INR 1.2 H (<1.2) APTT 29.8 (22.0-30.0) sec D-Dimer (<0.60) mg/L FEU Sodium (137-145) mmol/L Potassium (3.5-5.1) mmol/L Chloride (98-107) mmol/L Carbon Dioxide (22-30) mmol/L Anion Gap mmol/L BUN (7-17) mg/dL Creatinine (0.52-1.04) mg/dL Est GFR (CKD-EPI)AfAm (>60 ml/min/1.73 sqM) Est GFR (CKD-EPI)NonAf (>60 ml/min/1.73 sqM) Glucose (74-99) mg/dL Calcium (8.4-10.2) mg/dL Magnesium (1.6-2.3) mg/dL Total Bilirubin (0.2-1.3) mg/dL AST (14-36) U/L ALT (4-34) U/L Alkaline Phosphatase (38-126) U/L Troponin I (0.000-0.034) ng/mL NT-Pro-B Natriuret Pep pg/mL Total Protein (6.3-8.2) g/dL Albumin (3.5-5.0) g/dL Lipase (23-300) U/L Urine Color Colorless Urine Appearance Clear (Clear) Urine pH 7.0 (5.0-8.0) Ur Specific [place] 1.003 (1.001-1.035) Urine Protein Negative (Negative) Urine Glucose (UA) Negative (Negative) Urine Ketones Negative (Negative) Urine Blood Moderate H (Negative) Urine Nitrite Negative (Negative) Urine Bilirubin Negative (Negative) Urine Urobilinogen <2.0 (<2.0) mg/dL Ur Leukocyte Esterase Negative (Negative) Urine RBC 3 (0-5) /hpf Ur Squamous Epith Cells 2 (0-4) /hpf Amorphous Sediment Rare H (None) /hpf 02/19/24 02/19/24 02/19/24 Range/Units 08:03 08:03 08:04 WBC (3.8-10.6) k/uL RBC (3.80-5.40) m/uL Hgb (11.4-16.0) gm/dL Hct (34.0-46.0) % MCV (80.0-100.0) fL MCH (25.0-35.0) pg MCHC (31.0-37.0) g/dL RDW (11.5-15.5) % Plt Count (150-450) k/uL MPV Neutrophils % % Lymphocytes % % Monocytes % % Eosinophils % % Basophils % % Neutrophils # (1.3-7.7) k/uL Lymphocytes # (1.0-4.8) k/uL Monocytes # (0-1.0) k/uL Eosinophils # (0-0.7) k/uL Basophils # (0-0.2) k/uL Hypochromasia Anisocytosis PT (10.0-12.5) sec INR (<1.2) APTT (22.0-30.0) sec D-Dimer 0.59 (<0.60) mg/L FEU Sodium 144 (137-145) mmol/L Potassium 4.2 (3.5-5.1) mmol/L Chloride 114 H (98-107) mmol/L Carbon Dioxide 21 L (22-30) mmol/L Anion Gap 9 mmol/L BUN 9 (7-17) mg/dL Creatinine 0.52 (0.52-1.04) mg/dL Est GFR (CKD-EPI)AfAm >90 (>60 ml/min/1.73 sqM) Est GFR (CKD-EPI)NonAf >90 (>60 ml/min/1.73 sqM) Glucose 170 H (74-99) mg/dL Calcium 9.1 (8.4-10.2) mg/dL Magnesium 1.9 (1.6-2.3) mg/dL Total Bilirubin 0.6 (0.2-1.3) mg/dL AST 33 (14-36) U/L ALT 19 (4-34) U/L Alkaline Phosphatase 107 (38-126) U/L Troponin I <0.012 (0.000-0.034) ng/mL NT-Pro-B Natriuret Pep 52 pg/mL Total Protein 6.9 (6.3-8.2) g/dL Albumin 4.1 (3.5-5.0) g/dL Lipase 21 L (23-300) U/L Urine Color Urine Appearance (Clear) Urine pH (5.0-8.0) Ur Specific [place] (1.001-1.035) Urine Protein (Negative) Urine Glucose (UA) (Negative) Urine Ketones (Negative) Urine Blood (Negative) Urine Nitrite (Negative) Urine Bilirubin (Negative) Urine Urobilinogen (<2.0) mg/dL Ur Leukocyte Esterase (Negative) Urine RBC (0-5) /hpf Ur Squamous Epith Cells (0-4) /hpf Amorphous Sediment (None) /hpf - EKG Data -: EKG Interpreted by Me EKG Comments: 12-lead Electrocardiogram Interpretation Note EKG was reviewed and interpreted by myself. 12-lead ECG performed at 0741 is interpreted by me as revealing sinus tachycardia at a rate of 111 beats per minute. [place] is normal. [place] interval is 132 ms, QRS duration is 93 ms, QTc is 405 ms.. There were no ST or T wave abnormalities to suggest myocardial ischemia or injury. R wave progression across the precordium was satisfactory. By my interpretation this EKG is non-diagnostic for acute ischemia. 12-lead Electrocardiogram Interpretation Note EKG was reviewed and interpreted by myself. 12-lead ECG performed at 0952 is interpreted by me as revealing A-fib with RVR at a rate of 129 beats per minute. [place] is normal. QRS duration is 96 ms, QTc is 415 ms.. There were no ST or T wave abnormalities to suggest myocardial ischemia or injury. R wave progression across the precordium was satisfactory. By my interpretation this EKG is non-d iagnostic for acute ischemia. Critical Care Time Critical Care Time: Yes Total Critical Care Time: 35 Disposition Clinical Impression: Atrial fibrillation with RVR Disposition: ADMITTED IP TO THIS HOSP Condition: Stable Referrals: None,Stated [Primary Care Provider] - 1-2 days Time of Disposition: 11:15
[2024-02-19] MEDS: SODIUM CHLORIDE 0.9% 500 ML 500 ML IV STA (08:05)
[2024-02-19] MEDS: LIDOCAINE 4% PATCH TOPICAL STA (08:06)
[2024-02-19] MEDS: LORazepam 0.5 MG TAB PO STA (08:07)
[2024-02-19 08:21] LABS: Anisocytosis Slight; Basophils % (A) 0 %; Eosinophils % (A) 0 %; HCT 30.8 % (34.0-46.0); Hypochromasia Moderate; Lymphocytes # (A) 1.4 k/uL (1.0-4.8); Lymphocytes % (A) 20 %; MCH 26.6 pg (25.0-35.0); MCHC 32.4 g/dL (31.0-37.0); MCV 82.1 fL (80.0-100.0); Mean Platelet Volume 8.7; Monocytes # (A) 0.4 k/uL (0-1.0); Monocytes % (A) 6 %; Neutrophils # (A) 4.9 k/uL (1.3-7.7); Neutrophils % (A) 72 %; Platelet Count 141 k/uL (150-450); RBC 3.75 m/uL (3.80-5.40); RDW 16.9 % (11.5-15.5); WBC 6.8 k/uL (3.8-10.6)
[2024-02-19 08:31] LABS: ALT 19 U/L (4-34); AST 33 U/L (14-36); African American GFR (CKD) >90 (>60 ml/min/1.73 sqM); Albumin 4.1 g/dL (3.5-5.0); Alkaline Phosphatase 107 U/L (38-126); Anion Gap 9 mmol/L; Blood Urea Nitrogen 9 mg/dL (7-17); Calcium 9.1 mg/dL (8.4-10.2); Carbon Dioxide 21 mmol/L (22-30); Chloride 114 mmol/L (98-107); Glucose 170 mg/dL (74-99); Lipase 21 U/L (23-300); Magnesium 1.9 mg/dL (1.6-2.3); Non-African American GFR(CKD) >90 (>60 ml/min/1.73 sqM); Potassium 4.2 mmol/L (3.5-5.1); Sodium 144 mmol/L (137-145); Total Bilirubin 0.6 mg/dL (0.2-1.3); Total Protein 6.9 g/dL (6.3-8.2)
--- NOTE | 2024-02-19 08:35 | XR ---
EXAMINATION TYPE: XR chest 2V DATE OF EXAM: 02/19/2024 8:31 AM CLINICAL INDICATION: Female, 53 years old with history of Chest Pain; [facility] COMPARISON: Chest radiographs from 12/03/2023 TECHNIQUE: XR chest 2V Frontal view of the chest. FINDINGS: Lungs/Pleura: There is no evidence of pleural effusion, focal consolidation, or pneumothorax. Pulmonary vascularity: Unremarkable. Heart/mediastinum: Cardiomediastinal silhouette is unremarkable. Musculoskeletal: No acute osseous pathology. Other findings: None IMPRESSION: No acute cardiopulmonary disease/process.
[2024-02-19 08:39] LABS: INR 1.2 (<1.2); NT-Pro-B-Type Natriuretic Pept 52 pg/mL; Partial Thromboplastin Time 29.8 sec (22.0-30.0)
[2024-02-19 08:53] LABS: Amorphous Sediment,Urine Rare /hpf; Appearance,Urine Clear (Clear); Bilirubin,Urine Negative (Negative); Blood,Urine Moderate (Negative); Color,Urine Colorless; Glucose,Urine (UA) Negative (Negative); Ketones,Urine Negative (Negative); Leukocyte Esterase,Urine Negative (Negative); Nitrite,Urine Negative (Negative); Protein,Urine Negative (Negative); RBC,Urine 3 /hpf (0-5); Specific Gravity,Urine 1.003 (1.001-1.035); Squamous Epithelial Cell,Urine 2 /hpf (0-4); Urobilinogen,Urine <2.0 mg/dL (<2.0)
[2024-02-19] MEDS ORDERED: NALOXONE 0.4 MG/ML 1 ML VIAL IV PRN (11:00)
[2024-02-19] MEDS ORDERED: ASPIRIN 81 MG PO STA (11:06)
[2024-02-19] MEDS ORDERED: diphenhydrAMINE 50 MG CAP PO PRN (11:43)
--- NOTE | 2024-02-19 11:49 | P.HPIM ---
History of Present Illness Patient pleasant 53-year-old female came with complaints of elevated blood pressures and increase her pulse at home. Patient first EKG was within normal limits second EKG showed atrial fibrillation with rapid unclear rate heart rate going up to around 125. Patient was given Cardizem after which patient returned to sinus rhythm. Patient does not have any history of congestive heart failure, diabetes mellitus, vascular disease, hypertension, stroke or coronary artery disease in the past. Patient does have history of liver failure and is on liver transplant list. 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 Patient although can get anticoagulation if needed. Patient Tommy score is 0 and her blood pressure is in 120s systolic at this time. REVIEW OF SYSTEMS: All other systems are negative except those mentioned in the HPI PHYSICAL EXAMINATION: GENERAL: The patient is alert and oriented x3, not in any acute distress. Well developed, well nourished. HEENT: Pupils are round and equally reacting to light. EOMI. No scleral icterus. No conjunctival pallor. Normocephalic, atraumatic. No pharyngeal erythema. No thyromegaly. CARDIOVASCULAR: S1 and S2 present. No murmurs, rubs, or gallops. PULMONARY: Chest is clear to auscultation, no wheezing or crackles. ABDOMEN: Soft, nontender, nondistended, normoactive bowel sounds. No palpable organomegaly. MUSCULOSKELETAL: No joint swelling or deformity. EXTREMITIES: No cyanosis, clubbing, or pedal edema. NEUROLOGICAL: Gross neurological examination did not reveal any focal deficits. SKIN: No rashes. Assessment and plan -New onset atrial fibrillation with rapid rate presently converted to sinus rhythm patient was started on beta-shira, echocardiogram will be obtained cardiology will evaluate the patient. The patient regarding anticoagulation as per cardiology patient probably can be discharged for echo can be done today. -Hemophilia A and factor VIII deficiency: Patient can receive anticoagulation if needed -History of liver failure etiology is not known patient is on liver transplant list -Nicotine use: Counseling was provided DVT prophylaxis: Early ambulation Past Medical History Past Medical History: Blood Disorder, GI Bleed, Hypertension, Pneumonia Additional Past Medical History / Comment(s): Past hx HTN. c/o nausea, abd pain, diarrhea for 2 months, lost 26#. 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 C.diff September 2023 History of Any Multi-Drug Resistant Organisms: C-DIFF Date of last positivie culture/infection: September 2023 Past Surgical History: Section, Tonsillectomy Additional Past Surgical History / Comment(s): splenectomy Past Anesthesia/Blood Transfusion Reactions: No Reported Reaction Past Psychological History: No Psychological Hx Reported Smoking Status: Current every day smoker Past Alcohol Use History: Occasional Past Drug Use History: Marijuana - Past Family History Mother Family Medical History: Blood Disorder Additional Family Medical History / Comment(s): clotting disorder Medications and Allergies Home Medications Medication Instructions Recorded Confirmed Type diphenhydrAMINE HCL [Benadryl] 50 mg PO HS 02/25/21 02/19/24 History Cyanocobalamin (Vitamin B-12) 1,000 mcg PO HS 02/19/24 02/19/24 History [Vitamin B-12] Ferrous Sulfate [Feosol] 325 mg PO HS 02/19/24 02/19/24 History Melatonin 5 mg PO HS 02/19/24 02/19/24 History Omeprazole 40 mg PO HS 02/19/24 02/19/24 History Allergies Allergy/AdvReac Type Severity Reaction Status Date / Time NSAIDS (Non-Steroidal AdvReac Uable to Verified 02/19/24 10:42 Anti-Inflamma take BLOOD THINERS AdvReac CAN NOT Uncoded 02/19/24 10:42 HAVE Physical Exam Vitals: Vital Signs Temp Pulse Resp BP Pulse Ox 02/19/24 11:44 86 02/19/24 09:56 131 H 18 174/107 02/19/24 07:22 98.0 F 114 H 20 155/89 98 Intake and Output 02/18/24 02/19/24 02/19/24 22:59 06:59 14:59 Other: Weight 68.039 kg Results CBC & Chem 7: 02/19/24 08:03 02/19/24 08:03 Labs: Abnormal Lab Results - Last 24 Hours (Table) 02/19/24 02/19/24 02/19/24 Range/Units 08:03 08:03 08:03 RBC 3.75 L (3.80-5.40) m/uL Hgb 10.0 L (11.4-16.0) gm/dL Hct 30.8 L (34.0-46.0) % RDW 16.9 H (11.5-15.5) % Plt Count 141 L (150-450) k/uL PT 13.0 H (10.0-12.5) sec INR 1.2 H (<1.2) Chloride (98-107) mmol/L Carbon Dioxide (22-30) mmol/L Glucose (74-99) mg/dL Lipase (23-300) U/L Urine Blood Moderate H (Negative) Amorphous Sediment Rare H (None) /hpf 02/19/24 Range/Units 08:03 RBC (3.80-5.40) m/uL Hgb (11.4-16.0) gm/dL Hct (34.0-46.0) % RDW (11.5-15.5) % Plt Count (150-450) k/uL PT (10.0-12.5) sec INR (<1.2) Chloride 114 H (98-107) mmol/L Carbon Dioxide 21 L (22-30) mmol/L Glucose 170 H (74-99) mg/dL Lipase 21 L (23-300) U/L Urine Blood (Negative) Amorphous Sediment (None) /hpf
[2024-02-19] MEDS: DILTIAZEM DRIP BOLUS FROM BAG 1 MG SOLN IV ONE (11:52)
[2024-02-19] MEDS: SODIUM CHLORIDE 0.9% 1,000 ML IV SCH (11:53)
[2024-02-19] MEDS: DILTIAZEM 125 MG in SODIUM CHLORIDE 0.9% 100 ML IV SCH (11:53)
[2024-02-19] MEDS: GABAPENTIN 100 MG CAP PO STA (11:56)
[2024-02-19] MEDS: METOPROLOL TARTRATE 25 MG TAB PO SCH (12:00)
[2024-02-19] MEDS: MELATONIN 5 MG TABLET PO SCH (21:04)
[2024-02-19] MEDS: CYANOCOBALAMIN 500 MCG TAB PO SCH (21:04)
[2024-02-19] MEDS: PANTOPRAZOLE 40 MG TABLET PO SCH (21:05)
[2024-02-19] MEDS: FERROUS SULFATE 325 MG TAB PO SCH (21:05)
[2024-02-20 09:26] LABS: ALT 16 U/L (8-44); AST 22 U/L (13-35); Albumin 3.8 g/dL (3.8-4.9); Albumin/Globulin Ratio 1.81 Ratio (1.60-3.17); Alkaline Phosphatase 119 U/L (41-126); BUN/Creat Ratio 16.14 Ratio (12.00-20.00); Blood Urea Nitrogen 11.3 mg/dL (9.0-27.0); Calcium 8.7 mg/dL (8.7-10.3); Carbon Dioxide 19.8 mmol/L (21.6-31.8); Chloride 113 mmol/L (96-109); Globulin 2.1 g/dL (1.6-3.3); Glucose 139 mg/dL (70-110); Potassium 4.1 mmol/L (3.5-5.5); Sodium 144 mmol/L (135-145); Total Bilirubin 0.2 mg/dL (0.3-1.2); Total Protein 5.9 g/dL (6.2-8.2)
[2024-02-20 09:39] LABS: Basophils # (A) 0.07 X 10*3/uL (0.00-0.10); Basophils % (A) 1.1 %; Eosinophils # (A) 0.14 X 10*3/uL (0.04-0.35); Eosinophils % (A) 2.2 %; HCT 29.5 % (37.2-46.3); HGB 9.1 g/dL (12.0-15.0); Lymphocytes # (A) 2.37 X 10*3/uL (0.90-5.00); Lymphocytes % (A) 36.6 %; MCH 25.8 pg (27.0-32.0); MCHC 30.8 g/dL (32.0-37.0); MCV 83.6 FL (80.0-97.0); Mean Platelet Volume 11.9 FL (9.5-12.2); Monocytes # (A) 0.38 X 10*3/uL (0.20-1.00); Monocytes % (A) 5.9 %; NRBC Per 100 WBC 0 X 10*3/uL (0.00-0.01); Neutrophils # (A) 3.48 X 10*3/uL (1.80-7.70); Neutrophils % (A) 53.7 %; Platelet Count 135 X 10*3/uL (140-440); RBC 3.53 X 10*6/uL (4.10-5.20); RDW 17.7 % (11.5-14.5); WBC 6.47 X 10*3/uL (4.50-10.00)
[2024-02-20 11:50] VITALS: RESP 18
--- NOTE | 2024-02-20 11:51 | P.CRDCN ---
History of Present Illness History of present illness: HISTORY OF PRESENT ILLNESS: This is a 53-year-old female with a past medical history significant for hemophilia, factor VIII deficiency, and liver failure. Patient does not follow with a rehabilitation aide/scheduler. We have been asked to see the patient in consultation for new onset atrial fibrillation. Patient examined at the bedside in the emergency room. Patient presented to the hospital with a chief complaint of elevated blood pressure and palpitations. Initial EKG revealed sinus mechanism. Second EKG reveals multifocal atrial tachycardia. Bedside telemetry reveals sinus mechanism. The patient currently denies any chest pain or pressure. She denies any shortness of breath. Vital signs are currently stable. Patient states her blood pressure was elevated with a systolic in the 220s and route to the hospital. Patient states she has a history of liver failure and is on the liver transplant list DIAGNOSTICS: - EKG reveals multifocal atrial tachycardia - Chest xray negative for acute process - Laboratory data: WBC 6.47. Hemoglobin 9.1. Platelet count 135. D-dimer 0.59. Sodium 144. Potassium 4.1. BUN 11.3. Creatinine 0.7. Troponin negative x 3. proBNP 52. REVIEW OF SYSTEMS: At the time of my exam: CONSTITUTIONAL: Denies fever or chills. HEENT: Denies blurred vision, vision changes, or eye pain. Denies hemoptysis CARDIOVASCULAR: Denies chest pain. Denies orthopnea. Denies PND. Denies palpitations RESPIRATORY: Denies shortness of breath. GASTROINTESTINAL: Denies abdominal pain. Denies nausea or vomiting. HEMATOLOGIC: Denies bleeding disorders. GENITOURINARY: Denies any blood in urine. SKIN: Denies pruitis. Denies rash. PHYSICAL EXAM: VITAL SIGNS: Reviewed. GENERAL: Well-developed in no acute distress. HEENT: Head is normocephalic. Pupils are equal, round. Sclerae anicteric. Mucous membranes of the mouth are moist. Neck supple. No JVD or thyromegaly LUNGS: Respirations even and unlabored. Lungs essentially clear to auscultation bilaterally. HEART: Regular rate and rhythm. S1 and S2 heard. ABDOMEN: Soft. Nondistended. Nontender. EXTREMITIES: Normal range of motion. No clubbing or cyanosis. Peripheral pulses intact. No lower extremity edema NEUROLOGIC: Awake and alert. Oriented x 3. ASSESSMENT: Multifocal atrial tachycardia, no clear-cut evidence of atrial fibrillation History of liver failure of unknown etiology, patient states she is on the transplant list History of hemophilia History of factor VIII deficiency PLAN: Obtain 2D echo to assess cardiac structure and function No clear-cut evidence of atrial fibrillation. EKG suggest multifocal atrial tachycardia. No anticoagulation as EKG does not reveal clear-cut atrial fibr illation along with patient's comorbidities of liver failure and hemophilia Discontinue metoprolol Patient may be discharged home this afternoon from a cardiac standpoint Nurse practitioner note has been reviewed by physician. Signing provider agrees with the documented findings, assessment, and plan of care documented by DRAFTER C[employer]OGR[employer] as a scribe. Past Medical History Past Medical History: Blood Disorder, GI Bleed, Hypertension, Pneumonia Additional Past Medical History / Comment(s): Past hx HTN. c/o nausea, abd pain, diarrhea. 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 C.diff September 2023 History of Any Multi-Drug Resistant Organisms: C-DIFF Date of last positivie culture/infection: September 2023 MDRO Source:: stool Past Surgical History: Section, Tonsillectomy Additional Past Surgical History / Comment(s): splenectomy Past Anesthesia/Blood Transfusion Reactions: No Reported Reaction Past Psychological History: No Psychological Hx Reported Smoking Status: Current every day smoker Past Alcohol Use History: Occasional Additional Past Alcohol Use History / Comment(s): Smokes 1 ppd, since 16 years old. Drinks couple wine coolers daily Past Drug Use History: Marijuana - Past Family History Mother Family Medical History: Blood Disorder Additional Family Medical History / Comment(s): clotting disorder Medications and Allergies Home Medications Medication Instructions Recorded Confirmed Type diphenhydrAMINE HCL [Benadryl] 50 mg PO HS 02/25/21 02/19/24 History Cyanocobalamin (Vitamin B-12) 1,000 mcg PO HS 02/19/24 02/19/24 History [Vitamin B-12] Ferrous Sulfate [Feosol] 325 mg PO HS 02/19/24 02/19/24 History Melatonin 5 mg PO HS 02/19/24 02/19/24 History Omeprazole 40 mg PO HS 02/19/24 02/19/24 History Allergies Allergy/AdvReac Type Severity Reaction Status Date / Time NSAIDS (Non-Steroidal AdvReac Uable to Verified 02/19/24 10:42 Anti-Inflamma take BLOOD THINERS AdvReac CAN NOT Uncoded 02/19/24 10:42 HAVE Physical Exam Vitals: Vital Signs Temp Pulse Resp BP Pulse Ox 02/20/24 08:50 64 14 130/64 97 02/20/24 04:16 71 16 134/79 97 02/20/24 02:00 73 18 113/79 99 02/20/24 00:39 79 18 91/54 99 02/19/24 23:53 67 18 115/70 100 02/19/24 22:00 68 16 116/73 99 02/19/24 21:07 73 18 123/76 02/19/24 20:05 76 16 120/71 02/19/24 18:35 97.4 F L 73 12 118/61 99 02/19/24 13:10 98.4 F 81 14 116/83 99 02/19/24 11:57 97.6 F 88 14 125/84 98 02/19/24 11:44 86 02/19/24 09:56 131 H 18 174/107 Intake and Output 02/19/24 02/20/24 02/20/24 22:59 06:59 14:59 Other: Weight 68.039 kg Results 02/20/24 03:07 02/20/24 03:07 Cardiac Enzymes 02/19/24 02/19/24 Range/Units 11:50 15:16 Troponin I <0.012 <0.012 (0.000-0.034) ng/mL Current Medications Generic Name Dose Route Start Last Admin Trade Name Freq PRN Reason Stop Dose Admin Cyanocobalamin 1,000 mcg 02/19/24 21:00 02/19/24 21:04 Cyanocobalamin 500 Mcg Tab PO 1,000 mcg HS KERVIN Administration Diphenhydramine HCl 50 mg 02/19/24 11:43 Diphenhydramine 50 Mg Cap PO HS PRN Insomnia Ferrous Sulfate 325 mg 02/19/24 21:00 02/19/24 21:05 Ferrous Sulfate 325 Mg Tab PO 325 mg HS KERVIN Administration Sodium Chloride 1,000 mls @ 75 mls/hr 02/19/24 11:00 02/20/24 00:59 Saline 0.9% IV Not Given .[id number] KERVIN Melatonin 5 mg 02/19/24 21:00 02/19/24 21:04 Melatonin 5 Mg Tablet PO 5 mg HS KERVIN Administration Metoprolol Tartrate 25 mg 02/19/24 12:00 02/19/24 21:05 Metoprolol Tartrate 25 Mg Tab PO 25 mg BID KERVIN Administration Naloxone HCl 0.2 mg 02/19/24 11:00 Naloxone 0.4 Mg/Ml 1 Ml Vial IV Q2M PRN Opioid Reversal Pantoprazole Sodium 40 mg 02/19/24 21:00 02/19/24 21:05 Pantoprazole 40 Mg Tablet PO 40 mg HS KERVIN Administration Intake and Output 02/19/24 02/20/24 02/20/24 22:59 06:59 14:59 Other: Weight 68.039 kg 02/19/24 08:03 02/19/24 08:03
[2024-02-20 12:23] VITALS: TEMP 98.4
[2024-02-20] MEDS ORDERED: guaiFENesin SYRUP 100MG/5ML 200 MG/10 ML CUP PO PRN (13:07)
--- NOTE | 2024-02-20 14:41 | P.DS ---
Providers Date of admission: 02/19/24 11:44 Attending physician: Hui Lund Consults: 02/19/24 11:00 Consult Physician Routine Consulting Provider: [facility] Consult Reason/Comments: new onset afib with rvr Do you want consulting provider notified?: Yes Primary care physician: Stated None Hospital Course: Final Diagnosis Multifocal atrial tachycardia, no clear-cut evidence of atrial fibrillation per cardiology History of liver failure of unknown etiology, patient states she is on the transplant list History of hemophilia, factor VIII deficiency -Nicotine use: Counseling was provided Hx of GI bleed in the past Hx of C.Dif in the past Discharge Disposition Recommend to follow up at the cardiology office for echocardiogram. Follow up with PCP. Continue robitussin and supportive care for the cough. Hospital Course Patient pleasant 53-year-old female came with complaints of elevated blood pressures and increase her pulse at home. Patient first EKG was within normal limits second EKG showed atrial fibrillation with rapid unclear rate heart rate going up to around 125. Patient was given Cardizem after which patient returned to sinus rhythm. Patient does not have any history of congestive heart failure, diabetes mellitus, vascular disease, hypertension, stroke or coronary artery disease in the past. Patient does have history of liver failure and is on liver transplant list. 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 Patient although can get anticoagulation if needed. Patient Tommy score is 0 and her blood pressure is in 120s systolic at this time. Cardiology has evaluated the patient felt this was an atrial tachycardia with no clear evidence of atrial fibrillation and was taken off the metoprolol and no indication for anticoagulation. patient has been chest pain free. No palpitations. No dizziness or lightheadedness. Patient was recommended for echocardiogram which has not been done yet. This can likely be done on an ou tpatient basis. Patient has been complaining of cough which supportive care has been offered including tessalon perrles and robitussin. Patient can be discharged home. Please see medication reconciliation for a list of current medications. Thank you for allowing us to participate in the care of this patient. The impression and plan of care has been dictated by Alysia Duron, Nurse Practitioner as directed. Dr. Sarah MD I have performed a history and physical examination and medical decision making of this patient, discussed the same with the dictator, and agree with the dictators assessment and plan as written, documented as a scribe. Based on total visit time, I have performed more than 50% of this visit. Patient Condition at Discharge: Stable Plan - Discharge Summary New Discharge Prescriptions: Continue diphenhydrAMINE HCL [Benadryl] 50 mg PO HS Melatonin 5 mg PO HS Cyanocobalamin (Vitamin B-12) [Vitamin B-12] 1,000 mcg PO HS Ferrous Sulfate [Iron (65 MG Elemental)] 325 mg PO HS Omeprazole 40 mg PO HS Discharge Medication List diphenhydrAMINE HCL [Benadryl] 50 mg PO HS 02/25/21 [History] Cyanocobalamin (Vitamin B-12) [Vitamin B-12] 1,000 mcg PO HS 02/19/24 [History] Ferrous Sulfate [Iron (65 MG Elemental)] 325 mg PO HS 02/19/24 [History] Melatonin 5 mg PO HS 02/19/24 [History] Omeprazole 40 mg PO HS 02/19/24 [History] Follow up Appointment(s)/Referral(s): Boubacar Gonzalez DO [STAFF PHYSICIAN] - 1 Week None,Stated [Primary Care Provider] - 1-2 days Activity/Diet/Wound Care/Special Instructions: Follow up with cardiology in the office on discharge 1 to 2 weeks Continue on metoprolol. Discharge/Stand Alone Forms: Area PCPs Discharge Disposition: HOME SELF-CARE
[2024-02-20 15:18] VITALS: BP 107/61; PULSE 71
[2024-02-20] MEDS ORDERED: BENZONATATE 100 MG CAP PO SCH (16:00)
== END 2024-02-20 15:51 | disposition home or self-care (01) ==
LOC: EC 07:06 → 6NMEDSUR 11:44
PROVIDERS: ADMIT Hospitalist; ATTEND Hospitalist
DX: I47.19 Other supraventricular tachycardia (principal); K72.90 Hepatic failure, unspecified without coma; D66 Hereditary factor VIII deficiency; R07.82 Intercostal pain; D69.6 Thrombocytopenia, unspecified; D64.9 Anemia, unspecified; F17.210 Nicotine dependence, cigarettes, uncomplicated; R05.9 Cough, unspecified; Z76.82 Awaiting organ transplant status; Z79.899 Other long term (current) drug therapy; Z88.6 Allergy status to analgesic agent; Z88.8 Allergy status to other drugs, medicaments and biological substances; Z71.6 Tobacco abuse counseling; Z87.19 Personal history of other diseases of the digestive system; Z86.19 Personal history of other infectious and parasitic diseases
CPT/HCPCS: 96360; 96361 ×2; 99291; 36415; 93005; 85379; 83880; 80053 ×2; 83690; 83735; 84484; 85025 ×2; 85610; 85730; 81001; 71046; G0378 ×2

== ENCOUNTER 2024-05-14 20:55 | Emergency (ER) | payer OTHER ==
[2024-05-14 21:50] LABS: Basophils # (A) 0.1 k/uL (0-0.2); Basophils % (A) 1 %; Eosinophils # (A) 0.1 k/uL (0-0.7); Eosinophils % (A) 2 %; HCT 42.2 % (34.0-46.0); HGB 13.9 gm/dL (11.4-16.0); Lymphocytes # (A) 2.9 k/uL (1.0-4.8); Lymphocytes % (A) 32 %; MCH 29.7 pg (25.0-35.0); MCHC 32.9 g/dL (31.0-37.0); MCV 90.3 fL (80.0-100.0); Mean Platelet Volume 8.8; Monocytes # (A) 0.4 k/uL (0-1.0); Monocytes % (A) 4 %; Neutrophils # (A) 5.6 k/uL (1.3-7.7); Neutrophils % (A) 61 %; Platelet Count 141 k/uL (150-450); RBC 4.67 m/uL (3.80-5.40); RDW 15.6 % (11.5-15.5); WBC 9.2 k/uL (3.8-10.6)
--- NOTE | 2024-05-14 21:53 | XR ---
EXAMINATION TYPE: XR chest 2V DATE OF EXAM: 05/14/2024 9:47 PM COMPARISON: Numerous prior chest radiograph, most recently dated 02/19/2024. CLINICAL INDICATION: Female, 53 years old with history of Chest tightness; [facility] TECHNIQUE: XR chest 2V Frontal and lateral views of the chest. FINDINGS: Cardiac silhouette within normal limits for size. No acute focal consolidation. Mild left lung base scarring/atelectasis. Lungs hyperinflated bilaterally with mild coarsening of interstitial markings. No pleural effusion. No appreciable pneumothorax. No acute osseous and amounted. IMPRESSION: No acute cardiopulmonary disease/process. [facility], , 05/14/2024 9:51 PM
--- NOTE | 2024-05-14 22:03 | ED ---
General Adult HPI - General Chief complaint: Back Pain/Injury Stated complaint: urogenital, low fever Time Seen by Provider: 05/14/24 21:11 Source: patient, RN notes reviewed Mode of arrival: ambulatory Limitations: no limitations - History of Present Illness Initial comments: This is a 53-year-old female with history of end-stage liver disease presenting with back pain (6 out of 10) x 2 weeks. Patient endorses associated dysuria that has been worsening for the past 2 weeks as well. States that she suspects her UTI has moved to her kidneys. Endorses use of oxycodone with some pain relief. Chest tightness, lightheadedness, shortness of breath and nausea that started recently. Patient denies fever, chills, vomiting, diarrhea, constipation. Onset/Timin -: week(s) Location: back - Related Data Home Medications Medication Instructions Recorded Confirmed diphenhydrAMINE HCL [Benadryl] 50 mg PO HS 02/25/21 02/19/24 Cyanocobalamin (Vitamin B-12) 1,000 mcg PO HS 02/19/24 02/19/24 [Vitamin B-12] Ferrous Sulfate [Iron (65 MG 325 mg PO HS 02/19/24 02/19/24 Elemental)] Melatonin 5 mg PO HS 02/19/24 02/19/24 Omeprazole 40 mg PO HS 02/19/24 02/19/24 Previous Rx's Medication Instructions Recorded Ciprofloxacin HCl [Cipro] 500 mg PO Q12HR #28 tablet 05/14/24 Allergies Allergy/AdvReac Type Severity Reaction Status Date / Time NSAIDS (Non-Steroidal AdvReac Uable to Verified 05/14/24 21:02 Anti-Inflamma take BLOOD THINERS AdvReac CAN NOT Uncoded 05/14/24 21:02 HAVE Review of Systems ROS Statement: Those systems with pertinent positive or pertinent negative responses have been documented in the HPI. ROS Other: All systems not noted in ROS Statement are negative. Past Medical History Past Medical History: Blood Disorder, GI Bleed, Hypertension, Pneumonia Additional Past Medical History / Comment(s): Past hx HTN. c/o nausea, abd pain, diarrhea. 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 liver disorder History of Any Multi-Drug Resistant Organisms: None Reported Date of last positivie culture/infection: September 2023 MDRO Source:: stool Past Surgical History: Section, Tonsillectomy Additional Past Surgical History / Comment(s): splenectomy Past Anesthesia/Blood Transfusion Reactions: No Reported Reaction Past Psychological History: No Psychological Hx Reported Smoking Status: Current every day smoker Past Alcohol Use History: None Reported Past Drug Use History: None Reported - Past Family History Mother Family Medical History: Blood Disorder Additional Family Medical History / Comment(s): clotting disorder General Exam Limitations: no limitations General appearance: alert, in no apparent distress Head exam: Present: atraumatic, normocephalic, normal inspection Eye exam: Present: normal appearance, PERRL, EOMI. Absent: scleral icterus, conjunctival injection, periorbital swelling ENT exam: Present: normal exam, mucous membranes moist Neck exam: Present: normal inspection. Absent: tenderness, meningismus, lymphadenopathy Respiratory exam: Present: normal lung sounds bilaterally. Absent: respiratory distress, wheezes, rales, rhonchi, stridor Cardiovascular Exam: Present: regular rate, normal rhythm, normal heart sounds. Absent: systolic murmur, diastolic murmur, rubs, gallop, clicks GI/Abdominal exam: Present: soft, tenderness (Diffuse abdominal pain especially right upper quadrant, left upper quadrant and suprapubic with guarding.), guarding, normal bowel sounds. Absent: distended, rigid Extremities exam: Present: normal inspection, full ROM, normal capillary refill, other (Bilateral posterior tibialis pulse +2). Absent: tenderness, pedal edema, joint swelling, calf tenderness Back exam: Present: normal inspection, CVA tenderness (R), CVA tenderness (L). Absent: paraspinal tenderness Neurological exam: Present: alert, oriented X3, CN II-XII intact Psychiatric exam: Present: normal affect, normal mood Skin exam: Present: warm, dry, intact, normal color. Absent: rash Course Vital Signs 05/14/24 20:59 Temperature 98.2 F Pulse Rate 102 H Respiratory 20 Rate Blood Pressure 174/95 O2 Sat by Pulse 98 Oximetry Medical Decision Making - Medical Decision Making Was pt. sent in by a medical professional or institution (, PA, COMPUTER NUMERICAL CONTROL OPERATOR, urgent care, hospital, or fpc...) When possible be specific @ -[No] Did you speak to anyone other than the patient for history (EMS, parent, family, police, friend...)? What history was obtained from this source @ -[No] Did you review nursing and triage notes (agree or disagree)? Why? @ -[I reviewed and agree with nursing and triage notes] Were old charts reviewed (outside hosp., previous admission, EMS record, old EKG, old radiological studies, urgent care reports/EKG's, fpc records)? Report findings @ -[No old charts were reviewed] Differential Diagnosis (chest pain, altered mental status, abdominal pain women, abdominal pain men, vaginal bleeding, weakness, fever, dyspnea, syncope, headache, dizziness, GI bleed, back pain, seizure, CVA, palpatations, mental health, musculoskeletal)? @ -Differential Dyspnea: Coronary syndrome, arrhythmia, tamponade, asthma, COPD, pulmonary embolism, pneumonia, pneumothorax, pulmonary effusion, anaphylaxis, diabetic ketoacidosis, flailed chest, pulmonary contusion, diaphragmatic rupture, anemia, neurom uscular, this is not meant to be an all-inclusive list. Differential Abdominal Pain Women: Appendicitis, Cholecystitis, diverticulosis, ischemic bowel, pancreatitis, hepatitis, UTI, gastroenteritis, AAA, incarcerated hernia, bowel obstruction, constipation, inflammatory bowel, hepatitis, peptic ulcer disease, splenic infarction, perforated viscus, vulvitis, ovarian torsion, PID, kidney stone, gene centa abruption, this is not meant to be an all-inclusive list Differential Back Pain: Strain, zoster, cauda equina syndrome, epidural abscess, vertebral osteomyelitis, discitis, fracture, subluxation, disc herniation, DJD, spinal stenosis, dissection, AAA, pancreatitis, peptic ulcer disease, pyelonephritis, kidney stone, this is not meant to be an all-inclusive list. EKG interpreted by me (3pts min.). @ -Sinus rhythm without ST changes or T wave inversion. Ventricular rate 70 bpm, TRAV 140 ms, QRS duration 89 ms, QTc 389 ms. X-rays interpreted by me (1pt min.). @ -Chest x-ray shows no cardiomegaly, focal infiltrates, pulmonary edema or pneumothorax CT interpreted by me (1pt min.). @ -[None done] U/S interpreted by me (1pt. min.). @ -[None done] What testing was considered but not performed or refused? (CT, X-rays, U/S, labs)? Why? @ -[None] What meds were considered but not given or refused? Why? @ -[None] Did you discuss the management of the patient with other professionals (tristen mane i.e. , PA, COMPUTER NUMERICAL CONTROL OPERATOR, lab, RT, psych nurse, social studies teacher, audiometric technician, teacher, investment officer, rn case manager)? Give summary @ -[No] Was smoking cessation discussed for >3mins.? @ -[No] Was critical care preformed (if so, how long)? @ -[No] Were there social determinants of health that impacted care today? How? (Homelessness, low income, unemployed, alcoholism, drug addiction, transportation, low edu. Level, literacy, decrease access to med. care, shelter, rehab)? @ -[No] Was there de-escalation of care discussed even if they declined (Discuss DNR or withdrawal of care, Hospice)? DNR status @ -[No] What co-morbidities impacted this encounter? (DM, HTN, Smoking, COPD, CAD, Cancer, CVA, ARF, Chemo, Hep., AIDS, mental health diagnosis, sleep apnea, morbid obesity)? @ -Liver failure Was patient admitted / discharged? Hospital course, mention meds given and route, prescriptions, significant lab abnormalities, going to OR and other pertinent info. @ -[hospital course] Undiagnosed new problem with uncertain prognosis? @ -[No] Drug Therapy requiring intensive monitoring for toxicity (Heparin, Nitro, Insulin, Cardizem)? @ -[No] Were any procedures done? @ -[No] Diagnosis/symptom? @ -[default] Acute, or Chronic, or Acute on Chronic? @ -Acute Uncomplicated (without systemic symptoms) or Complicated (systemic symptoms)? @ -Complicated Side effects of treatment? @ -[No] Exacerbation, Progression, or Severe Exacerbation? @ -[No] Poses a threat to life or bodily function? How? (Chest pain, [place], CO, pneumonia, PE, COPD, DKA, ARF, appy, cholecystitis, CVA, Diverticulitis, Homicidal, Suicidal, threat to staff... and all critical care pts) @ -[No] - Lab Data Result diagrams: 05/14/24 21:29 05/14/24 21:29 Lab Results 11/20/24 11/20/24 11/20/24 Range/Units 21:29 21:29 21:29 WBC 9.2 (3.8-10.6) k/uL RBC 4.67 (3.80-5.40) m/uL Hgb 13.9 (11.4-16.0) gm/dL Hct 42.2 (34.0-46.0) % MCV 90.3 (80.0-100.0) fL MCH 29.7 (25.0-35.0) pg MCHC 32.9 (31.0-37.0) g/dL RDW 15.6 H (11.5-15.5) % Plt Count 141 L (150-450) k/uL MPV 8.8 Neutrophils % 61 % Lymphocytes % 32 % Monocytes % 4 % Eosinophils % 2 % Basophils % 1 % Neutrophils # 5.6 (1.3-7.7) k/uL Lymphocytes # 2.9 (1.0-4.8) k/uL Monocytes # 0.4 (0-1.0) k/uL Eosinophils # 0.1 (0-0.7) k/uL Basophils # 0.1 (0-0.2) k/uL PT 12.4 (10.0-12.5) sec INR 1.2 H (<1.2) APTT 35.5 H (22.0-30.0) sec D-Dimer <0.17 (<0.60) mg/L FEU Sodium 137 (137-145) mmol/L Potassium 4.3 (3.5-5.1) mmol/L Chloride 107 (98-107) mmol/L Carbon Dioxide 21 L (22-30) mmol/L Anion Gap 9 mmol/L BUN 6 L (7-17) mg/dL Creatinine 0.62 (0.52-1.04) mg/dL Est GFR (CKD-EPI)AfAm >90 (>60 ml/min/1.73 sqM) Est GFR (CKD-EPI)NonAf >90 (>60 ml/min/1.73 sqM) Glucose 128 H (74-99) mg/dL Calcium 10.0 (8.4-10.2) mg/dL Total Bilirubin 0.7 (0.2-1.3) mg/dL AST 29 (14-36) U/L ALT 18 (4-34) U/L Alkaline Phosphatase 115 (38-126) U/L Troponin I (0.000-0.034) ng/mL Total Protein 7.5 (6.3-8.2) g/dL Albumin 4.5 (3.5-5.0) g/dL Lipase 17 L (23-300) U/L Urine Color Urine Appearance (Clear) Urine pH (5.0-8.0) Ur Specific Aurelia (1.001-1.035) Urine Protein (Negative) Urine Glucose (UA) (Negative) Urine Ketones (Negative) Urine Blood (Negative) Urine Nitrite (Negative) Urine Bilirubin (Negative) Urine Urobilinogen (<2.0) mg/dL Ur Leukocyte Esterase (Negative) Urine RBC (0-5) /hpf Urine WBC (0-5) /hpf Ur Squamous Epith Cells (0-4) /hpf Urine Mucus (None) /hpf Urine Yeast (Budding) (None) /hpf Influenza Type A (PCR) (Not Detectd) Influenza Type B (PCR) (Not Detectd) RSV (PCR) (Not Detectd) SARS-CoV-2 (PCR) (Not Detectd) 05/14/24 05/14/24 05/14/24 Range/Units 21:29 21:40 21:54 WBC (3.8-10.6) k/uL RBC (3.80-5.40) m/uL Hgb (11.4-16.0) gm/dL Hct (34.0-46.0) % MCV (80.0-100.0) fL MCH (25.0-35.0) pg MCHC (31.0-37.0) g/dL RDW (11.5-15.5) % Plt Count (150-450) k/uL MPV Neutrophils % % Lymphocytes % % Monocytes % % Eosinophils % % Basophils % % Neutrophils # (1.3-7.7) k/uL Lymphocytes # (1.0-4.8) k/uL Monocytes # (0-1.0) k/uL Eosinophils # (0-0.7) k/uL Basophils # (0-0.2) k/uL PT (10.0-12.5) sec INR (<1.2) APTT (22.0-30.0) sec D-Dimer (<0.60) mg/L FEU Sodium (137-145) mmol/L Potassium (3.5-5.1) mmol/L Chloride (98-107) mmol/L Carbon Dioxide (22-30) mmol/L Anion Gap mmol/L BUN (7-17) mg/dL Creatinine (0.52-1.04) mg/dL Est GFR (CKD-EPI)AfAm (>60 ml/min/1.73 sqM) Est GFR (CKD-EPI)NonAf (>60 ml/min/1.73 sqM) Glucose (74-99) mg/dL Calcium (8.4-10.2) mg/dL Total Bilirubin (0.2-1.3) mg/dL AST (14-36) U/L ALT (4-34) U/L Alkaline Phosphatase (38-126) U/L Troponin I <0.012 (0.000-0.034) ng/mL Total Protein (6.3-8.2) g/dL Albumin (3.5-5.0) g/dL Lipase (23-300) U/L Urine Color Yellow Urine Appearance Cloudy H (Clear) Urine pH 7.0 (5.0-8.0) Ur Specific Aurelia 1.015 (1.001-1.035) Urine Protein Negative (Negative) Urine Glucose (UA) Negative (Negative) Urine Ketones Negative (Negative) Urine Blood Moderate H (Negative) Urine Nitrite Negative (Negative) Urine Bilirubin Negative (Negative) Urine Urobilinogen 2.0 (<2.0) mg/dL Ur Leukocyte Esterase Large H (Negative) Urine RBC 50 H (0-5) /hpf Urine WBC 125 H (0-5) /hpf Ur Squamous Epith Cells 26 H (0-4) /hpf Urine Mucus Rare H (None) /hpf Urine Yeast (Budding) Few H (None) /hpf Influenza Type A (PCR) Not Detected (Not Detectd) Influenza Type B (PCR) Not Detected (Not Detectd) RSV (PCR) Not Detected (Not Detectd) SARS-CoV-2 (PCR) Not Detected (Not Detectd) Disposition Clinical Impression: Pyelonephritis, Urinary tract infection Disposition: HOME SELF-CARE Condition: Good Instructions (If sedation given, give patient instructions): Urinary Tract Infection in Women (DC) Prescriptions: Ciprofloxacin HCl [Cipro] 500 mg PO Q12HR #28 tablet Is patient prescribed a controlled substance at d/c from ED?: No Referrals: None,Stated [Primary Care Provider] - 1-2 days Time of Disposition: 22:48
[2024-05-14] MEDS: ONDANSETRON 4 MG/2 ML VIAL IVP STA (22:04)
[2024-05-14 22:05] LABS: Appearance,Urine Cloudy (Clear); Bilirubin,Urine Negative (Negative); Blood,Urine Moderate (Negative); Budding Yeast,Urine Few /hpf; Color,Urine Yellow; Glucose,Urine (UA) Negative (Negative); Ketones,Urine Negative (Negative); Leukocyte Esterase,Urine Large (Negative); Mucus,Urine Rare /hpf; Nitrite,Urine Negative (Negative); Protein,Urine Negative (Negative); RBC,Urine 50 /hpf (0-5); Specific Gravity,Urine 1.015 (1.001-1.035); Squamous Epithelial Cell,Urine 26 /hpf (0-4); WBC,Urine 125 /hpf (0-5)
[2024-05-14 22:06] LABS: ALT 18 U/L (4-34); AST 29 U/L (14-36); African American GFR (CKD) >90 (>60 ml/min/1.73 sqM); Albumin 4.5 g/dL (3.5-5.0); Alkaline Phosphatase 115 U/L (38-126); Anion Gap 9 mmol/L; Blood Urea Nitrogen 6 mg/dL (7-17); Carbon Dioxide 21 mmol/L (22-30); Chloride 107 mmol/L (98-107); Glucose 128 mg/dL (74-99); Lipase 17 U/L (23-300); Non-African American GFR(CKD) >90 (>60 ml/min/1.73 sqM); Potassium 4.3 mmol/L (3.5-5.1); Sodium 137 mmol/L (137-145); Total Bilirubin 0.7 mg/dL (0.2-1.3); Total Protein 7.5 g/dL (6.3-8.2)
[2024-05-14 22:13] LABS: INR 1.2 (<1.2); Partial Thromboplastin Time 35.5 sec (22.0-30.0); Prothrombin Time 12.4 sec (10.0-12.5)
[2024-05-14] MEDS: cefTRIAXone 1,000 MG VIAL (IM USE) IM STA (22:41)
[2024-05-14] MEDS: SODIUM CHLORIDE 0.9% 2,000 ML IV STA (22:44)
[2024-05-14] MEDS: CIPROFLOXACIN HCL 500 MG TAB PO STA (23:11)
--- NOTE | 2024-05-14 23:13 | CT ---
EXAMINATION TYPE: CT abdomen pelvis wo con DATE OF EXAM: 05/14/2024 HISTORY: Patient states burning with urination and is having lower back and flank pain. CT DLP: 458.4 mGycm. Automated Exposure Control for Dose Reduction was Utilized. TECHNIQUE: CT scan of the abdomen and pelvis is performed without oral or IV contrast. COMPARISON: Prior CT September 27, 2023 FINDINGS: Within the limitations of a non-contrast study, the following observations are made. LUNG BASES: Left breast implant is partially imaged similar to prior. LIVER/GB: Hepatomegaly is redemonstrated. Liver remains heterogeneously hypodense consistent with dif fuse fatty infiltrative hepatocellular disease. Gallbladder has distended margins. Common Bile duct m easures upper limits of normal coronal image 38. PANCREAS: No significant abnormality is seen. SPLEEN: Splenomegaly redemonstrated measuring 14.0 cm long axis coronal image 55. ADRENALS: No significant abnormality is seen. KIDNEYS: No renal calculi seen bilaterally. No hydronephrosis seen bilaterally. No intraluminal calcu li in poorly distended bladder. BOWEL: Suboptimal evaluation without enteric contrast. No abnormal small or large bowel dilatation. GENITAL ORGANS: Anteverted uterus. LYMPH NODES: Mild fat stranding in the right lower quadrant/upper pelvis posterior mesentery is less prominent versus prior near axial image 96. OSSEOUS STRUCTURES: No significant abnormality is seen. OTHER: Mild calcified plaque of the aorta extends into branch vessels. IMPRESSION: 1. No renal stones or hydronephrosis seen bilaterally. No suspicious new or acute finding present to account for patient's symptoms. [facility], , 05/14/2024 11:11 PM
[2024-05-15 00:15] VITALS: BP 128/81; PULSE 77; RESP 19; TEMP 97.7
== END 2024-05-15 00:17 | disposition home or self-care (01) ==
LOC: EC 20:55
DX: N12 Tubulo-interstitial nephritis, not specified as acute or chronic (principal); N39.0 Urinary tract infection, site not specified; K72.90 Hepatic failure, unspecified without coma; F17.200 Nicotine dependence, unspecified, uncomplicated; Z88.6 Allergy status to analgesic agent; Z88.8 Allergy status to other drugs, medicaments and biological substances
CPT/HCPCS: 36415; 93005; 85379; 80053; 83690; 84484; 85025; 85610; 85730; 81001; 87086; 87636; 71046; 74176; 99284; 96365; 96375; 96361; J2405; J0696

== ENCOUNTER 2024-07-11 01:40 | Inpatient (IN) | payer OTHER ==
--- NOTE | 2024-07-11 02:14 | ED ---
Arrhythmia/Palpitations HPI - General Chief Complaint: Arrhythmia/Palpitations Stated Complaint: Chest Pain Time Seen by Provider: 07/11/24 01:57 Source: patient Mode of arrival: ambulatory - History of Present Illness Initial Comments: This patient is a 53-year-old woman who presents to evaluation for racing heart. Patient states this came on approximately 3 hours ago while she was at rest. There is a little bit of shortness of breath and some chest pressure. The patient relates she had a similar episode approximately 5 months ago, but states she was not placed on medication at that time. The condition had resolved. MD Complaint: rapid heart beat, irregular heart beat Onset/Timin -: hour(s) Context: occurred during rest Arrhythmia History: atrial fibrillation Associated Symptoms: chest pain, shortness of breath - Related Data Home Medications Medication Instructions Recorded Confirmed diphenhydrAMINE HCL [Benadryl] 50 mg PO HS 02/25/21 07/11/24 Melatonin 5 mg PO HS 02/19/24 07/11/24 Omeprazole 40 mg PO HS 02/19/24 07/11/24 Cyanocobalamin [Vitamin B-12] 1,000 mcg PO TID 07/11/24 07/11/24 Gabapentin [Neurontin] 400 mg PO DAILY@1300 07/11/24 07/11/24 Gabapentin [Neurontin] 800 mg PO HS 07/11/24 07/11/24 oxyCODONE HCL [OxyIR] 5 mg PO QID 07/11/24 07/11/24 Previous Rx's Medication Instructions Recorded Aspirin 81 mg PO DAILY tab 07/13/24 Metoprolol Tartrate [Lopressor] 25 mg PO TID 30 Days #60 tab 07/13/24 Allergies Allergy/AdvReac Type Severity Reaction Status Date / Time NSAIDS (Non-Steroidal AdvReac Unable to Verified 07/11/24 07:57 Anti-Inflamma take - per patient BLOOD THINERS AdvReac Unable to Uncoded 07/11/24 07:57 take - per patient Review of Systems ROS Statement: Those systems with pertinent positive or pertinent negative responses have been documented in the HPI. ROS Other: All systems not noted in ROS Statement are negative. Constitutional: Denies: fever, chills, weakness Eyes: Denies: vision change Respiratory: Denies: cough, dyspnea, hemoptysis Cardiovascular: Reports: palpitations. Denies: chest pain, orthopnea, edema, syncope Gastrointestinal: Denies: abdominal pain, nausea, vomiting, diarrhea Genitourinary: Denies: dysuria, hematuria Musculoskeletal: Denies: back pain Skin: Denies: rash Neurological: Denies: headache, weakness, numbness Psychiatric: Reports: anxiety Past Medical History Past Medical History: Blood Disorder, GI Bleed, Hypertension, Pneumonia Additional Past Medical History / Comment(s): Past hx HTN. c/o nausea, abd pain, diarrhea. 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 liver disorder History of Any Multi-Drug Resistant Organisms: None Reported Date of last positivie culture/infection: September 2023 MDRO Source:: stool Past Surgical History: Section, Tonsillectomy Additional Past Surgical History / Comment(s): splenectomy Past Anesthesia/Blood Transfusion Reactions: No Reported Reaction Past Psychological History: No Psychological Hx Reported Smoking Status: Current every day smoker Past Alcohol Use History: None Reported Past Drug Use History: None Reported - Past Family History Mother Family Medical History: Blood Disorder Additional Family Medical History / Comment(s): clotting disorder General Exam General appearance: alert, in no apparent distress Head exam: Present: atraumatic, normocephalic Eye exam: Present: normal appearance. Absent: scleral icterus, conjunctival injection Neck exam: Present: normal inspection Respiratory exam: Present: normal lung sounds bilaterally. Absent: respiratory distress, wheezes, rales, rhonchi, stridor, accessory muscle use Cardiovascular Exam: Present: tachycardia, irregular rhythm. Absent: systolic murmur, diastolic murmur, rubs, gallop GI/Abdominal exam: Present: soft. Absent: distended, tenderness, guarding, rebound, rigid, mass Extremities exam: Present: normal inspection, normal capillary refill. Absent: pedal edema, calf tenderness Back exam: Present: normal inspection. Absent: CVA tenderness (R), CVA tenderness (L) Neurological exam: Present: alert Skin exam: Present: warm, dry, intact, normal color. Absent: rash Course Vital Signs 07/11/24 07/11/24 07/11/24 01:46 02:26 03:03 Temperature 98.4 F Pulse Rate 136 H 158 H 101 H Respiratory 18 16 Rate Blood Pressure 156/97 153/99 123/81 O2 Sat by Pulse 98 98 Oximetry 07/11/24 07/11/24 07/11/24 04:12 06:50 07:40 Temperature 98.1 F Pulse Rate 98 86 94 Respiratory 16 16 16 Rate Blood Pressure 112/85 107/75 111/81 O2 Sat by Pulse 98 97 97 Oximetry 07/11/24 07/11/24 07/11/24 08:35 09:03 10:01 Temperature Pulse Rate 87 96 78 Respiratory 12 14 14 Rate Blood Pressure 94/61 96/67 99/70 O2 Sat by Pulse 95 98 96 Oximetry 07/11/24 07/11/24 07/11/24 11:12 12:00 14:25 Temperature 97.9 F 98.5 F Pulse Rate 89 81 60 Respiratory 14 14 14 Rate Blood Pressure 106/71 110/74 113/74 O2 Sat by Pulse 96 96 98 Oximetry 07/11/24 07/11/24 07/11/24 16:45 16:47 17:12 Temperature Pulse Rate 52 L 66 56 L Respiratory 12 16 Rate Blood Pressure 115/66 O2 Sat by Pulse 98 12 L Oximetry 07/11/24 17:52 Temperature 97.6 F Pulse Rate 69 Respiratory 14 Rate Blood Pressure 110/76 O2 Sat by Pulse 99 Oximetry EKG Findings - EKG Results: EKG: interpreted by ERMD, normal axis EKG shows: tachycardia (Rate 168 bpm), atrial fibrillation - Blocks, [place], Hypertrophy, ST Abn: QRS axis and voltage: low voltage (<0.5 MV total QRS and <1.0 MV in each precordial lead) Medical Decision Making - Medical Decision Making The patient had chest x-ray that I interpreted as negative for acute infiltrate, pneumothorax, congestive heart failure Was pt. sent in by a medical professional or institution (, PA, CORNER BRACE BLOCK MACHINE OPERATOR, urgent care, hospital, or group home...) When possible be specific @ -[No] Did you speak to anyone other than the patient for history (EMS, parent, family, police, friend...)? What history was obtained from this source @ -[No] Did you review nursing and triage notes (agree or disagree)? Why? @ -[I reviewed and agree with nursing and triage notes] Were old charts reviewed (outside hosp., previous admission, EMS record, old EKG, old radiological studies, urgent care reports/EKG's, group home records)? Report findings @ -[No old charts were reviewed] Differential Diagnosis (chest pain, altered mental status, abdominal pain women, abdominal pain men, vaginal bleeding, weakness, fever, dyspnea, syncope, headache, dizziness, GI bleed, back pain, seizure, CVA, palpatations, mental health, musculoskeletal)? @ -Differential Palpitations Ventricular arrhythmias, atrial arrhythmias, myocardial infarction, anemia, thyrotoxicosis, electrolyte imbalance, hypokalemia, pulmonary embolism, pulmonary disease, drugs, alcohol, anxiety, stress.... This is not meant to be an all-inclusive list. EKG interpreted by me (3pts min.). @ -[I interpreted as above] X-rays interpreted by me (1pt min.). @ -I interpreted as above CT interpreted by me (1pt min.). @ -[None done] U/S interpreted by me (1pt. min.). @ -[None done] What testing was considered but not performed or refused? (CT, X-rays, U/S, labs)? Why? @ -[None] What meds were considered but not given or refused? Why? @ -[None] Did you discuss the management of the patient with other professionals (professionals i.e. , PA, CORNER BRACE BLOCK MACHINE OPERATOR, lab, RT, psych nurse, social security assessor, internet site designer, teacher, chief compliance officer, case picker)? Give summary @ -[Case discussed with admitting physician and treatment recommendations incorporated Was smoking cessation discussed for >3mins.? @ -[No] Was critical care preformed (if so, how long)? @ -[Yes, 35 minutes Were there social determinants of health that impacted care today? How? (Homelessness, low income, unemployed, alcoholism, drug addiction, trans portation, low edu. Level, literacy, decrease access to med. care, nursing home, rehab)? @ -[No] Was there de-escalation of care discussed even if they declined (Discuss DNR or withdrawal of care, Hospice)? DNR status @ -[No] What co-morbidities impacted this encounter? (DM, HTN, Smoking, COPD, CAD, Cance r, CVA, ARF, Chemo, Hep., AIDS, mental health diagnosis, sleep apnea, morbid obesity)? @ -[Chronic liver disease Was patient admitted / discharged? Hospital course, mention meds given and route, prescriptions, significant lab abnormalities, going to OR and other pertinent info. @ -[This patient is a 53-year-old woman presenting with complaint of palpitations and found to have atrial fibrillation with rapid ventricular rate. The patient is started on medication for rate control. Labs not indicative of acute ischemia. Patient is admitted to have further cardiology evaluation. Undiagnosed new problem with uncertain prognosis? @ -[No] Drug Therapy requiring intensive monitoring for toxicity (Heparin, Nitro, Insulin, Cardizem)? @ -[No] Were any procedures done? @ -[No] Diagnosis/symptom? @ -[Acute atrial fibrillation with rapid ventricular rate Acute, or Chronic, or Acute on Chronic? @ -[Acute Uncomplicated (without systemic symptoms) or Complicated (systemic symptoms)? @ -[Uncomplicated Side effects of treatment? @ -[No] Exacerbation, Progression, or Severe Exacerbation? @ -[No] Poses a threat to life or bodily function? How? (Chest pain, USA, SC, pneumonia, PE, COPD, DKA, ARF, appy, cholecystitis, CVA, Diverticulitis, Homicidal, Suicidal, threat to staff... and all critical care pts) @ -[Yes there is risk of the arrhythmia becoming more unstable leading to congestive heart failure/cardiac All treatments are based on ideal body weight as in ED triage - Lab Data Result diagrams: 07/13/24 07:19 07/13/24 07:19 Lab Results 07/11/24 07/11/24 07/11/24 Range/Units 02:19 02:19 02:19 WBC 10.3 (3.8-10.6) k/uL RBC 4.61 (3.80-5.40) m/uL Hgb 12.9 (11.4-16.0) gm/dL Hct 39.1 (34.0-46.0) % MCV 84.8 D (80.0-100.0) fL MCH 28.1 (25.0-35.0) pg MCHC 33.1 (31.0-37.0) g/dL RDW 13.5 (11.5-15.5) % Plt Count 141 L (150-450) k/uL MPV 8.0 Neutrophils % 57 % Lymphocytes % 35 % Monocytes % 5 % Eosinophils % 2 % Basophils % 1 % Neutrophils # 5.8 (1.3-7.7) k/uL Lymphocytes # 3.6 (1.0-4.8) k/uL Monocytes # 0.5 (0-1.0) k/uL Eosinophils # 0.3 (0-0.7) k/uL Basophils # 0.1 (0-0.2) k/uL PT 12.2 (10.0-12.5) sec INR 1.1 (<1.2) APTT 32.9 H (22.0-30.0) sec Sodium 135 L (137-145) mmol/L Potassium 4.1 (3.5-5.1) mmol/L Chloride 104 (98-107) mmol/L Carbon Dioxide 21 L (22-30) mmol/L Anion Gap 10 mmol/L BUN 7 (7-17) mg/dL Creatinine 0.70 (0.52-1.04) mg/dL Est GFR (CKD-EPI)AfAm >90 (>60 ml/min/1.73 sqM) Est GFR (CKD-EPI)NonAf >90 (>60 ml/min/1.73 sqM) Glucose 137 H (74-99) mg/dL Calcium 9.7 (8.4-10.2) mg/dL Magnesium 1.9 (1.6-2.3) mg/dL Total Bilirubin 0.7 (0.2-1.3) mg/dL AST 30 (14-36) U/L ALT 17 (4-34) U/L Alkaline Phosphatase 126 (38-126) U/L Troponin I (0.000-0.034) ng/mL Total Protein 7.6 (6.3-8.2) g/dL Albumin 4.4 (3.5-5.0) g/dL TSH 1.780 (0.465-4.680) mIU/L 07/11/24 Range/Units 02:19 WBC (3.8-10.6) k/uL RBC (3.80-5.40) m/uL Hgb (11.4-16.0) gm/dL Hct (34.0-46.0) % MCV (80.0-100.0) fL MCH (25.0-35.0) pg MCHC (31.0-37.0) g/dL RDW (11.5-15.5) % Plt Count (150-450) k/uL MPV Neutrophils % % Lymphocytes % % Monocytes % % Eosinophils % % Basophils % % Neutrophils # (1.3-7.7) k/uL Lymphocytes # (1.0-4.8) k/uL Monocytes # (0-1.0) k/uL Eosinophils # (0-0.7) k/uL Basophils # (0-0.2) k/uL PT (10.0-12.5) sec INR (<1.2) APTT (22.0-30.0) sec Sodium (137-145) mmol/L Potassium (3.5-5.1) mmol/L Chloride (98-107) mmol/L Carbon Dioxide (22-30) mmol/L Anion Gap mmol/L BUN (7-17) mg/dL Creatinine (0.52-1.04) mg/dL Est GFR (CKD-EPI)AfAm (>60 ml/min/1.73 sqM) Est GFR (CKD-EPI)NonAf (>60 ml/min/1.73 sqM) Glucose (74-99) mg/dL Calcium (8.4-10.2) mg/dL Magnesium (1.6-2.3) mg/dL Total Bilirubin (0.2-1.3) mg/dL AST (14-36) U/L ALT (4-34) U/L Alkaline Phosphatase (38-126) U/L Troponin I <0.012 (0.000-0.034) ng/mL Total Protein (6.3-8.2) g/dL Albumin (3.5-5.0) g/dL TSH (0.465-4.680) mIU/L Disposition Clinical Impression: Atrial fibrillation with RVR Disposition: ADMITTED IP TO THIS HOSP Condition: Fair Is patient prescribed a controlled substance at d/c from ED?: No
[2024-07-11] MEDS: DILTIAZEM DRIP BOLUS FROM BAG 1 MG SOLN IV ONE (02:30)
[2024-07-11] MEDS: DILTIAZEM 125 MG in SODIUM CHLORIDE 0.9% 100 ML IV SCH (02:30)
[2024-07-11] MEDS: SODIUM CHLORIDE 0.9% 500 ML 500 ML IV STA (02:38)
[2024-07-11 02:40] LABS: Basophils # (A) 0.1 k/uL (0-0.2); Basophils % (A) 1 %; Eosinophils # (A) 0.3 k/uL (0-0.7); Eosinophils % (A) 2 %; HCT 39.1 % (34.0-46.0); HGB 12.9 gm/dL (11.4-16.0); Lymphocytes # (A) 3.6 k/uL (1.0-4.8); Lymphocytes % (A) 35 %; MCH 28.1 pg (25.0-35.0); MCHC 33.1 g/dL (31.0-37.0); Monocytes # (A) 0.5 k/uL (0-1.0); Monocytes % (A) 5 %; Neutrophils # (A) 5.8 k/uL (1.3-7.7); Neutrophils % (A) 57 %; Platelet Count 141 k/uL (150-450); RBC 4.61 m/uL (3.80-5.40); RDW 13.5 % (11.5-15.5); WBC 10.3 k/uL (3.8-10.6)
[2024-07-11 02:55] LABS: INR 1.1 (<1.2); Partial Thromboplastin Time 32.9 sec (22.0-30.0); Prothrombin Time 12.2 sec (10.0-12.5)
[2024-07-11 03:01] LABS: ALT 17 U/L (4-34); AST 30 U/L (14-36); African American GFR (CKD) >90 (>60 ml/min/1.73 sqM); Albumin 4.4 g/dL (3.5-5.0); Alkaline Phosphatase 126 U/L (38-126); Anion Gap 10 mmol/L; Blood Urea Nitrogen 7 mg/dL (7-17); Calcium 9.7 mg/dL (8.4-10.2); Carbon Dioxide 21 mmol/L (22-30); Chloride 104 mmol/L (98-107); Glucose 137 mg/dL (74-99); Magnesium 1.9 mg/dL (1.6-2.3); Non-African American GFR(CKD) >90 (>60 ml/min/1.73 sqM); Potassium 4.1 mmol/L (3.5-5.1); Sodium 135 mmol/L (137-145); Total Bilirubin 0.7 mg/dL (0.2-1.3); Total Protein 7.6 g/dL (6.3-8.2)
[2024-07-11] MEDS: ASPIRIN 81 MG PO STA (04:09)
[2024-07-11 04:13] LABS: MCV 84.8 fL (80.0-100.0)
--- NOTE | 2024-07-11 05:16 | XR ---
EXAM: XR Chest, 1 View CLINICAL HISTORY: ITS.REASON XR Reason: dysrhythmia TECHNIQUE: Frontal view of the chest. COMPARISON: No relevant prior studies available. FINDINGS: Lungs: No consolidation or mass. Pleural space: No acute findings. Heart: No cardiomegaly. Bones/joints: No acute findings. IMPRESSION: No acute cardiopulmonary process.
[2024-07-11] MEDS ORDERED: NITROGLYCERIN SL TABS 0.4 MG TAB SUBLINGUAL PRN (05:52)
[2024-07-11] MEDS: METOPROLOL TARTRATE 25 MG TAB PO SCH (11:54)
--- NOTE | 2024-07-11 14:22 | P.CRDCN ---
History of Present Illness Consult date: 07/11/24 Reason for Consult (text): Atrial fibrillation with RVR History of present illness: This is a 53-year-old female patient with past medical history of liver disease of unknown etiology followed at the liver transplant center at [facility] jermaine, unknown etiology, hemophilia, factor VIII deficiency. Patient does not follow with a vacuum tank tender. Patient was seen in February of last year with concern for atrial fibrillation but was diagnosed with multifocal atrial tachycardia at that time. Patient now presents with a fluttering feeling in her chest that did not stop. She states she has felt some racing before but it usually goes away. She denies having any chest pain. She states she had some lightheadedness. She also states she had a high blood pressure reading at home. Now she just feels tired and has not been able to sleep in the emergency center. Regarding the liver failure, she states she has been told that the cause is unknown. She drinks alcohol only socially in the past and quit all alcohol 2 years ago. Patient was started on Cardizem bolus 10 mg followed by 5 mg/h and is currently atrial fibrillation rate controlled. Blood pressure 99/70, heart rate 78. -EKG: Atrial fibrillation 168 bpm, #2 atrial fibrillation at 89 bpm -Chest x-ray: No acute process -Laboratory studies: WBC 10.3, hemoglobin 12.9, platelet count 141. Troponin negative x 3. -Home cardiac medications: None Review Of Systems: At the time of my exam: CONSTITUTIONAL: Denies fever or chills. HEENT: Denies blurred vision, vision changes, or eye pain. Denies hemoptysis CARDIOVASCULAR: Denies chest pain. Denies orthopnea. Denies PND. Denies palpitations RESPIRATORY: Denies shortness of breath. GASTROINTESTINAL: Denies abdominal pain. Denies nausea or vomiting. HEMATOLOGIC: Denies bleeding disorders. GENITOURINARY: Denies any blood in urine. SKIN: Denies puritis. Denies rash. Physical examination: Gen: This is a 53-year-old female in no acute distress VS: reviewed HEENT: Head is atraumatic, normocephalic. Pupils equal, round. Sclerae is anicteric. NECK: Supple. No JVD. LUNGS: Clear to auscultation. No wheezes or rhonchi. No intercostal retractions. HEART: Irregular rate and rhythm. No murmur. ABDOMEN: Soft No tenderness. EXTREMITIES: No pedal edema. No calf tenderness. NEUROLOGICAL: Patient is awake, alert and oriented x3. Assessment: Paroxysmal atrial fibrillation with RVR, currently rate controlled Liver failure Hemophilia Factor VIII deficiency Plan: Discontinue Cardizem drip Start patient on Lopressor 25 mg 3 times daily Aspirin 81 mg daily Hold anticoagulation. Patient has been instructed to follow-up with her liver specialist at [facility] and office helper clerical at [facility] regarding anticoagulation Obtain 2-D echocardiogram and Doppler study to assess cardiac structure and function Further recommendations to follow based upon clinical course Thank you kindly for this consultation. Nurse practitioner note has been reviewed, I agree with documented findings and plan of care. Patient was seen and examined. Past Medical History Past Medical History: Blood Disorder, GI Bleed, Hypertension, Pneumonia Additional Past Medical History / Comment(s): Past hx HTN. c/o nausea, abd pain, diarrhea. 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 liver disorder History of Any Multi-Drug Resistant Organisms: None Reported Date of last positivie culture/infection: September 2023 MDRO Source:: stool Past Surgical History: Section, Tonsillectomy Additional Past Surgical History / Comment(s): splenectomy Past Anesthesia/Blood Transfusion Reactions: No Reported Reaction Past Psychological History: No Psychological Hx Reported Smoking Status: Current every day smoker Past Alcohol Use History: None Reported Past Drug Use History: None Reported - Past Family History Mother Family Medical History: Blood Disorder Additional Family Medical History / Comment(s): clotting disorder Medications and Allergies Home Medications Medication Instructions Recorded Confirmed Type diphenhydrAMINE HCL [Benadryl] 50 mg PO HS 02/25/21 07/11/24 History Melatonin 5 mg PO HS 02/19/24 07/11/24 History Omeprazole 40 mg PO HS 02/19/24 07/11/24 History Cyanocobalamin [Vitamin B-12] 1,000 mcg PO TID 07/11/24 07/11/24 History Gabapentin [Neurontin] 400 mg PO DAILY@1300 07/11/24 07/11/24 History Gabapentin [Neurontin] 800 mg PO HS 07/11/24 07/11/24 History oxyCODONE HCL [OxyIR] 5 mg PO QID 07/11/24 07/11/24 History Allergies Allergy/AdvReac Type Severity Reaction Status Date / Time NSAIDS (Non-Steroidal AdvReac Unable to Verified 07/11/24 07:57 Anti-Inflamma take - per patient BLOOD THINERS AdvReac Unable to Uncoded 07/11/24 07:57 take - per patient Physical Exam Vitals: Vital Signs Temp Pulse Resp BP Pulse Ox 07/11/24 12:00 81 14 110/74 96 07/11/24 11:12 97.9 F 89 14 106/71 96 07/11/24 10:01 78 14 99/70 96 07/11/24 09:03 96 14 96/67 98 07/11/24 08:35 87 12 94/61 95 07/11/24 07:40 98.1 F 94 16 111/81 97 07/11/24 06:50 86 16 107/75 97 07/11/24 04:12 98 16 112/85 98 07/11/24 03:03 101 H 16 123/81 98 07/11/24 02:26 158 H 153/99 07/11/24 01:46 98.4 F 136 H 18 156/97 98 Intake and Output 07/10/24 07/11/24 07/11/24 22:59 06:59 14:59 Other: Weight 65.771 kg Results 07/11/24 02:19 07/11/24 02:19 Cardiac Enzymes 07/11/24 07/11/24 07/11/24 Range/Units 02:19 02:19 06:14 AST 30 (14-36) U/L Troponin I <0.012 <0.012 (0.000-0.034) ng/mL 07/11/24 Range/Units 09:26 AST (14-36) U/L Troponin I <0.012 (0.000-0.034) ng/mL Coagulation 07/11/24 Range/Units 02:19 PT 12.2 (10.0-12.5) sec APTT 32.9 H (22.0-30.0) sec CBC 07/11/24 Range/Units 02:19 WBC 10.3 (3.8-10.6) k/uL RBC 4.61 (3.80-5.40) m/uL Hgb 12.9 (11.4-16.0) gm/dL Hct 39.1 (34.0-46.0) % Plt Count 141 L (150-450) k/uL Comprehensive Metabolic Panel 07/11/24 Range/Units 02:19 Sodium 135 L (137-145) mmol/L Potassium 4.1 (3.5-5.1) mmol/L Chloride 104 (98-107) mmol/L Carbon Dioxide 21 L (22-30) mmol/L BUN 7 (7-17) mg/dL Creatinine 0.70 (0.52-1.04) mg/dL Glucose 137 H (74-99) mg/dL Calcium 9.7 (8.4-10.2) mg/dL AST 30 (14-36) U/L ALT 17 (4-34) U/L Alkaline Phosphatase 126 (38-126) U/L Total Protein 7.6 (6.3-8.2) g/dL Albumin 4.4 (3.5-5.0) g/dL Current Medications Generic Name Dose Route Start Last Admin Trade Name Freq PRN Reason Stop Dose Admin Aspirin 81 mg 07/12/24 09:00 Aspirin 81 Mg PO DAILY [facility] Cyanocobalamin 1,000 mcg 07/11/24 16:00 Cyanocobalamin 500 Mcg Tab PO TID [facility] Gabapentin 400 mg 07/12/24 13:00 Gabapentin 400 Mg Cap PO DAILY@1300 [facility] Gabapentin 800 mg 07/11/24 21:00 Gabapentin 400 Mg Cap PO HS [facility] Melatonin 5 mg 07/11/24 21:00 Melatonin 5 Mg Tablet PO HS [facility] Metoprolol Tartrate 25 mg 07/11/24 12:00 07/11/24 11:54 Metoprolol Tartrate 25 Mg Tab PO 25 mg TID [facility] Administration Nitroglycerin 0.4 mg 07/11/24 05:52 Nitroglycerin Sl Tabs 0.4 Mg Tab SUBLINGUAL Q5M PRN Chest Pain Oxycodone HCl 5 mg 07/11/24 18:00 Oxycodone Hcl 5 Mg Tab PO QID [facility] Pantoprazole Sodium 40 mg 07/11/24 21:00 Pantoprazole 40 Mg Tablet PO HS [facility] Intake and Output 07/10/24 07/11/24 07/11/24 22:59 06:59 14:59 Other: Weight 65.771 kg 07/11/24 02:19 07/11/24 02:19
[2024-07-11] MEDS: GABAPENTIN 400 MG CAP PO STA (14:32)
[2024-07-11] MEDS: oxyCODONE-APAP 5-325MG 1 EACH TAB PO STA (14:32)
[2024-07-11] MEDS: CYANOCOBALAMIN 500 MCG TAB PO SCH (16:46)
[2024-07-11 18:31] VITALS: RESP 16
[2024-07-11] MEDS: GABAPENTIN 400 MG CAP PO SCH (21:25)
[2024-07-11] MEDS: MELATONIN 5 MG TABLET PO SCH (21:25)
[2024-07-11] MEDS: PANTOPRAZOLE 40 MG TABLET PO SCH (21:25)
[2024-07-12] MEDS: ASPIRIN 81 MG PO SCH (08:15)
[2024-07-12] MEDS ORDERED: ASPIRIN 325 MG TAB PO SCH (09:00)
[2024-07-12 11:57] LABS: Basophils % (A) 0 %; Eosinophils # (A) 0.2 k/uL (0-0.7); Eosinophils % (A) 3 %; HCT 34.1 % (34.0-46.0); HGB 11.2 gm/dL (11.4-16.0); Lymphocytes # (A) 4.1 k/uL (1.0-4.8); Lymphocytes % (A) 49 %; MCH 28.3 pg (25.0-35.0); MCHC 32.8 g/dL (31.0-37.0); MCV 86.2 fL (80.0-100.0); Mean Platelet Volume 9.6; Monocytes # (A) 0.4 k/uL (0-1.0); Monocytes % (A) 4 %; Neutrophils # (A) 3.5 k/uL (1.3-7.7); Neutrophils % (A) 43 %; Platelet Count 136 k/uL (150-450); RBC 3.95 m/uL (3.80-5.40); RDW 13.9 % (11.5-15.5); WBC 8.3 k/uL (3.8-10.6)
[2024-07-12] MEDS: GABAPENTIN 400 MG CAP PO SCH (12:08)
[2024-07-12 12:43] LABS: African American GFR (CKD) >90 (>60 ml/min/1.73 sqM); Anion Gap 7 mmol/L; Blood Urea Nitrogen 13 mg/dL (7-17); Calcium 9.2 mg/dL (8.4-10.2); Carbon Dioxide 22 mmol/L (22-30); Chloride 110 mmol/L (98-107); Glucose 92 mg/dL (74-99); Non-African American GFR(CKD) 89 (>60 ml/min/1.73 sqM); Potassium 4.1 mmol/L (3.5-5.1); Sodium 139 mmol/L (137-145)
[2024-07-12 13:11] LABS: Chol/HDL Ratio 9.34 Ratio; LDL Cholesterol,Calculated 173.8 mg/dL (0.0-131.0)
--- NOTE | 2024-07-12 14:26 | CA ---
Transthoracic Echo Report Name: Yi Carey Age: 53 Gender: F : 1970 Exam Date: 07/12/2024 09:50 Exam Location: [facility] Ht (in): 68 Wt (lb): 145 Ordering Physician: Mamta Faye Attending/Referring Phys: [id number] Leather Sprayer Procedure CPT: Indications: LVF Cardiac Hx: Technical Quality: Fair Contrast 1: Total Dose (mL): Contrast 2: Total Dose (mL): MEASUREMENTS (Male / Female) Normal Values 2D ECHO LV Diastolic Diameter PLAX 5.8 cm 4.2 - 5.9 / 3.9 - 5.3 cm LV Systolic Diameter PLAX 3.7 cm IVS Diastolic Thickness 0.7 cm 0.6 - 1.0 / 0.6 - 0.9 cm LVPW Diastolic Thickness 0.7 cm 0.6 - 1.0 / 0.6 - 0.9 cm LV Relative Wall Thickness 0.2 LVOT Diameter 2.0 cm LV Diastolic Volume MOD BP 103.1 cm??? 67 - 155 / 56 - 104 cm??? LV Systolic Volume MOD BP 31.3 cm??? 22 - 58 / 19 - 49 cm??? LV Ejection Fraction MOD BP 69.7 % >= 55 % LV Cardiac Index MOD BP 2062.2 cm???/min???m??? LV Diastolic Volume MOD 4C 94.5 cm??? LV Systolic Volume MOD 4C 32.8 cm??? LV Ejection Fraction MOD 4C 65.3 % LV Cardiac Index MOD 4C 1769.8 cm???/min???m??? LV Diastolic Length 4C 7.4 cm LV Systolic Length 4C 6.2 cm LV Diastolic Volume MOD 2C 107.3 cm??? LV Systolic Volume MOD 2C 30.3 cm??? LV Ejection Fraction MOD 2C 71.7 % LV Cardiac Index MOD 2C 2209.0 cm???/min???m??? LV Diastolic Length 2C 7.9 cm LV Systolic Length 2C 6.2 cm LA Volume 46.7 cm??? 18 - 58 / 22 - 52 cm??? LA Volume Index 26.3 cm???/m??? 16 - 28 cm???/m??? DOPPLER AV Peak Velocity 155.8 cm/s AV Peak Gradient 9.7 mmHg AV Mean Velocity 99.9 cm/s AV Mean Gradient 4.6 mmHg AV Velocity Time Integral 32.7 cm LVOT Peak Velocity 125.2 cm/s LVOT Peak Gradient 6.3 mmHg LVOT Velocity Time Integral 27.6 cm LVOT Stroke Volume 90.0 cm??? LVOT Stroke Volume Index 50.5 ml/m??? LVOT Cardiac Index 2582.9 cm???/min???m??? AV Area Cont Eq vti 2.8 cm??? AV Area Cont Eq pk 2.6 cm??? MV Area PHT 4.0 cm??? Mitral E Point Velocity 107.1 cm/s Mitral A Point Velocity 73.1 cm/s Mitral E to A Ratio 1.5 MV Deceleration Time 187.7 ms TR Peak Velocity 208.6 cm/s TR Peak Gradient 17.4 mmHg Right Atrial Pressure 5.0 mmHg Pulmonary Artery Systolic Pressu 22.4 mmHg Right Ventricular Systolic Press 22.4 mmHg PV Peak Velocity 85.7 cm/s PV Peak Gradient 2.9 mmHg FINDINGS Left Ventricle Left ventricular ejection fraction is estimated at 60-65 %. Mildly increased left ventricular diastolic diameter. Left ventricular wall thickness normal. No obvious regional wall motion abnormalities. Right Ventricle Normal right ventricular size and function. Right ventricular systolic pressure within normal limits. Right Atrium Normal right atrial size. Left Atrium Mild left atrial dilatation. Mitral Valve Structurally normal mitral valve. No evidence for mitral valve prolapse. No mitral stenosis. Trace mitral regurgitation. Aortic Valve Trileaflet aortic valve. No aortic valve stenosis or regurgitation. Tricuspid Valve Structurally normal tricuspid valve. No tricuspid stenosis. Mild tricuspid regurgitation. Pulmonic Valve Structurally normal pulmonic valve. No pulmonic stenosis. No pulmonic regurgitation. Pericardium No pericardial effusion. Aorta Aortic annulus normal. CONCLUSIONS LVEF 60 to 65% No obvious regional wall motion abnormality Normal RV size and systolic function. RVSP estimated around 25 mmHg Mild left atrial dilatation Mild tricuspid regurgitation Previewed by: Dr Kris Limon (Electronically Signed) Final Date: 12 July 2024 14:25
--- NOTE | 2024-07-12 16:36 | P.HPIM ---
History of Present Illness H&P Date: 07/11/24 Chief Complaint: Chest palpitations 53-year-old female patient with past medical history of liver disease of unknown etiology followed at the liver transplant center at [facility]; hemophilia, factor VIII deficiency. Patient was seen in February of last year with concern for atrial fibrillation but was diagnosed with multifocal atrial tachycardia at that time. Patient now presents with a fluttering feeling in her chest that did not stop. She states she has felt some racing before but it usually goes away. She denies having any chest pain. She states she had some lightheadedness. She also states she had a high blood pressure reading at home. Now she just feels tired and has not been able to sleep in the emergency center. Patient was started on Cardizem bolus 10 mg followed by 5 mg/h and is currently atrial fibrillation rate controlled. Blood work completed in ED reveals a WBC of 10.3, hemoglobin of 12.9 and platelet count of 141, INR of 1.1, sodium 135, potassium of 4.1, BUNs/creatinine of 7/0.70, TSH of 1.78 Review of Systems REVIEW OF SYSTEMS: CONSTITUTIONAL: No fever, no malaise, no fatigue. HEENT: No recent visual problems or hearing problems. Denied any sore throat. CARDIOVASCULAR: No chest pain, orthopnea, PND, no palpitations, no syncope. PULMONARY: No shortness of breath, no cough, no hemoptysis. GASTROINTESTINAL: No diarrhea, no nausea, no vomiting, no abdominal pain. NEUROLOGICAL: No headaches, no weakness, no numbness. HEMATOLOGICAL: Denies any bleeding or petechiae. GENITOURINARY: Denies any burning micturition, frequency, or urgency. MUSCULOSKELETAL/RHEUMATOLOGICAL: Denies any joint pain, swelling, or any muscle pain. ENDOCRINE: Denies any polyuria or polydipsia. The rest of the 14-point review of systems is negative. Past Medical History Past Medical History: Blood Disorder, GI Bleed, Hypertension, Pneumonia Additional Past Medical History / Comment(s): Past hx HTN. c/o nausea, abd pain, diarrhea. 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 liver disorder History of Any Multi-Drug Resistant Organisms: None Reported Date of last positivie culture/infection: September 2023 MDRO Source:: stool Past Surgical History: Section, Tonsillectomy Additional Past Surgical History / Comment(s): splenectomy Past Anesthesia/Blood Transfusion Reactions: No Reported Reaction Past Psychological History: No Psychological Hx Reported Smoking Status: Current every day smoker Past Alcohol Use History: None Reported Past Drug Use History: None Reported - Past Family History Mother Family Medical History: Blood Disorder Additional Family Medical History / Comment(s): clotting disorder Medications and Allergies Home Medications Medication Instructions Recorded Confirmed Type diphenhydrAMINE HCL [Benadryl] 50 mg PO HS 02/25/21 07/11/24 History Melatonin 5 mg PO HS 02/19/24 07/11/24 History Omeprazole 40 mg PO HS 02/19/24 07/11/24 History Cyanocobalamin [Vitamin B-12] 1,000 mcg PO TID 07/11/24 07/11/24 History Gabapentin [Neurontin] 400 mg PO DAILY@1300 07/11/24 07/11/24 History Gabapentin [Neurontin] 800 mg PO HS 07/11/24 07/11/24 History oxyCODONE HCL [OxyIR] 5 mg PO QID 07/11/24 07/11/24 History Allergies Allergy/AdvReac Type Severity Reaction Status Date / Time NSAIDS (Non-Steroidal AdvReac Unable to Verified 07/11/24 07:57 Anti-Inflamma take - per patient BLOOD THINERS AdvReac Unable to Uncoded 07/11/24 07:57 take - per patient Physical Exam Vitals: Vital Signs Temp Pulse Resp BP Pulse Ox 07/11/24 12:00 81 14 110/74 96 07/11/24 11:12 97.9 F 89 14 106/71 96 07/11/24 10:01 78 14 99/70 96 07/11/24 09:03 96 14 96/67 98 07/11/24 08:35 87 12 94/61 95 07/11/24 07:40 98.1 F 94 16 111/81 97 07/11/24 06:50 86 16 107/75 97 07/11/24 04:12 98 16 112/85 98 07/11/24 03:03 101 H 16 123/81 98 07/11/24 02:26 158 H 153/99 07/11/24 01:46 98.4 F 136 H 18 156/97 98 Intake and Output 07/10/24 07/11/2425 22:59 06:59 14:59 Other: Weight 65.771 kg HEENT: Head is atraumatic, normocephalic. Pupils equal, round. Sclerae is anicteric. NECK: Supple. No JVD. LUNGS: Clear to auscultation. No wheezes or rhonchi. No intercostal retractio ns. HEART: Irregular rate and rhythm. No murmur. ABDOMEN: Soft No tenderness. EXTREMITIES: No pedal edema. No calf tenderness. NEUROLOGICAL: Patient is awake, alert and oriented x3. Results CBC & Chem 7: 07/12/24 06:24 07/12/24 06:24 Labs: Abnormal Lab Results - Last 24 Hours (Table) 07/11/24 07/11/24 07/11/24 Range/Units 02:19 02:19 02:19 Plt Count 141 L (150-450) k/uL APTT 32.9 H (22.0-30.0) sec Sodium 135 L (137-145) mmol/L Carbon Dioxide 21 L (22-30) mmol/L Glucose 137 H (74-99) mg/dL Assessment and Plan Assessment: 1. Paroxysmal atrial fibrillation --Patient is currently rate controlled; has been placed on IV Cardizem infusion in ER -- No anticoagulation given hemophilia and factor VIII deficiency -- Cardiology has been consulted; recommend 2D echo 2. History of liver failure; patient follows up with [facility] and is on liver transfusion last -- Patient to follow-up with primary retail field merchandiser postdischarge 3. Hemophilia/factor VIII deficiency; patient follows up with seamer at [facility] [place] -- No anticoagulation at this time 4. Vitamin B12 deficiency; patient takes vitamin B12 1000 mcg 3 times daily 5. Neuropathy; Neurontin 400 mg daily with 800 mg nightly 6. Chronic pain; patient takes oxycodone 5 mg 4 times daily DVT prophylaxis; SCDs CODE STATUS; full code
--- NOTE | 2024-07-12 16:37 | P.PN ---
Subjective Progress Note Date: 07/12/24 53-year-old female patient with past medical history of liver disease of unknown etiology followed at the liver transplant center at [facility]; hemophilia, factor VIII deficiency. Patient was seen in February of last year with concern for atrial fibrillation but was diagnosed with multifocal atrial tachycardia at that time. Patient now presents with a fluttering feeling in her chest that did not stop. She states she has felt some racing before but it usually goes away. She denies having any chest pain. She states she had some lightheadedness. She also states she had a high blood pressure reading at home. Now she just feels tired and has not been able to sleep in the emergency ce nter. Patient was started on Cardizem bolus 10 mg followed by 5 mg/h and is currently atrial fibrillation rate controlled. Blood work completed in ED reveals a WBC of 10.3, hemoglobin of 12.9 and platelet count of 141, INR of 1.1, sodium 135, potassium of 4.1, BUNs/creatinine of 7/0.70, TSH of 1.78 Objective - Vital Signs Vital signs: Vital Signs Temp 97.7 F 07/11/24 20:00 Pulse 53 L 07/12/24 08:00 Resp 16 07/12/24 08:00 BP 102/54 07/12/24 08:00 Pulse Ox 96 07/12/24 08:00 FiO2 Intake & Output 07/11/24 07/12/24 07/12/24 18:59 06:59 18:59 Intake Total 1080 Balance 1080 Weight 65.771 kg 66.3 kg Intake: Oral 1080 Other: Voiding Method Toilet Toilet # Voids 1 - Exam HEENT: Head is atraumatic, normocephalic. Pupils equal, round. Sclerae is anicteric. NECK: Supple. No JVD. LUNGS: Clear to auscultation. No wheezes or rhonchi. No intercostal retractions. HEART: Irregular rate and rhythm. No murmur. ABDOMEN: Soft No tenderness. EXTREMITIES: No pedal edema. No calf tenderness. NEUROLOGICAL: Patient is awake, alert and oriented x3. - Labs CBC & Chem 7: 07/12/24 06:24 07/12/24 06:24 Assessment and Plan Assessment: 1. Paroxysmal atrial fibrillation --Patient is currently rate controlled; has been placed on IV Cardizem infusion in ER -- No anticoagulation given hemophilia and factor VIII deficiency -- Cardiology has been consulted; recommend 2D echo 2. History of liver failure; patient follows up with [facility] and is on liver transfusion last -- Patient to follow-up with primary store leader postdischarge 3. 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 Vitamin B12 deficiency; patient takes vitamin B12 1000 mcg 3 times daily 5. Neuropathy; Neurontin 400 mg daily with 800 mg nightly 6. Chronic pain; patient takes oxycodone 5 mg 4 times daily DVT prophylaxis; SCDs CODE STATUS; full code
--- NOTE | 2024-07-12 20:00 | P.PN ---
Subjective Progress Note Date: 07/12/24 This is a 53-year-old female patient with past medical history of liver disease of unknown etiology followed at the liver transplant center at [facility], unknown etiology, hemophilia, factor VIII deficiency. Patient does not follow with a mobile mechanic. Patient was seen in February of last year with concern for atrial fibrillation but was diagnosed with multifocal atrial tachycardia at that time. Patient now presents with a fluttering feeling in her chest that did not stop. She states she has felt some racing before but it usually goes away. She denies having any chest pain. She states she had some lightheadedness. She also states she had a high blood pressure reading at home. Now she just feels tired and has not been able to sleep in the emergency center. Regarding the liver failure, she states she has been told that the cause is unknown. She drinks alcohol only socially in the past and quit all alcohol 2 years ago. Patient was started on Cardizem bolus 10 mg followed by 5 mg/h and is currently atrial fibrillation rate controlled. Blood pressure 99/70, heart rate 78. -EKG: Atrial fibrillation 168 bpm, #2 atrial fibrillation at 89 bpm -Chest x-ray: No acute process -Laboratory studies: WBC 10.3, hemoglobin 12.9, platelet count 141. Troponin negative x 3. -Home cardiac medications: None Progress note 07/12/2024 Patient is seen sinus rhythm at this time. She denies any chest pain chest pressure. Physical examination: Gen: This is a 53-year-old female in no acute distress VS: reviewed HEENT: Head is atraumatic, normocephalic. Pupils equal, round. Sclerae is anicteric. NECK: Supple. No JVD. LUNGS: Clear to auscultation. No wheezes or rhonchi. No intercostal retractions. HEART: Irregular rate and rhythm. No murmur. ABDOMEN: Soft No tenderness. EXTREMITIES: No pedal edema. No calf tenderness. NEUROLOGICAL: Patient is awake, alert and oriented x3. Assessment: Paroxysmal atrial fibrillation with RVR, currently in sinus rhythm Liver failure Hemophilia Factor VIII deficiency Echo shows an EF of 60 to 65%, No obvious regional wall motion abnormality, normal RV size and systolic function, mild left atrial dilatation, RVSP of 25 mmHg Plan: Continue metoprolol 25 mg 3 times daily Continue aspirin 81 mg Hold anticoagulation. Patient has been instructed to follow-up with her liver specialist at [facility] and social work supervisor [place] [facility] [place] At this time patient is cleared from cardiovascular standpoint. Cardiology team will sign off. Please reconsult us in case of any question. Objective - Vital Signs Vital signs: Vital Signs Temp 97.7 F 07/11/24 20:00 Pulse 54 L 07/12/24 16:00 Resp 16 07/12/24 16:00 BP 114/62 07/12/24 16:00 Pulse Ox 97 07/12/24 16:00 FiO2 Intake & Output 07/12/24 07/12/24 07/13/24 06:59 18:59 06:59 Intake Total 1080 Balance 1080 Weight 66.3 kg Intake: Oral 1080 Other: Voiding Method Toilet Toilet # Voids 1 - Labs CBC & Chem 7: 07/12/24 06:24 07/12/24 06:24 Labs: Abnormal Lab Results - Last 24 Hours (Table) 07/12/24 07/12/24 07/12/24 Range/Units 06:24 06:24 06:24 Hgb 11.2 L (11.4-16.0) gm/dL Plt Count 136 L (150-450) k/uL Chloride 110 H (98-107) mmol/L Cholesterol 226.00 H (0.00-200.00) mg/dL LDL Cholesterol, Calc 173.8 H (0.0-131.0) mg/dL HDL Cholesterol 24.20 L (40.00-60.00) mg/dL
[2024-07-13 07:50] LABS: Basophils # (A) 0.1 k/uL (0-0.2); Basophils % (A) 1 %; Eosinophils # (A) 0.2 k/uL (0-0.7); Eosinophils % (A) 2 %; HGB 11.7 gm/dL (11.4-16.0); Lymphocytes # (A) 3.5 k/uL (1.0-4.8); Lymphocytes % (A) 46 %; MCH 28.8 pg (25.0-35.0); MCHC 33.5 g/dL (31.0-37.0); MCV 86.1 fL (80.0-100.0); Mean Platelet Volume 9.2; Monocytes # (A) 0.3 k/uL (0-1.0); Monocytes % (A) 4 %; Neutrophils # (A) 3.4 k/uL (1.3-7.7); Neutrophils % (A) 45 %; Platelet Count 128 k/uL (150-450); RBC 4.07 m/uL (3.80-5.40); RDW 13.8 % (11.5-15.5); WBC 7.6 k/uL (3.8-10.6)
[2024-07-13 08:18] LABS: African American GFR (CKD) >90 (>60 ml/min/1.73 sqM); Anion Gap 8 mmol/L; Blood Urea Nitrogen 13 mg/dL (7-17); Calcium 9.3 mg/dL (8.4-10.2); Carbon Dioxide 22 mmol/L (22-30); Chloride 108 mmol/L (98-107); Glucose 104 mg/dL (74-99); Non-African American GFR(CKD) >90 (>60 ml/min/1.73 sqM); Sodium 138 mmol/L (137-145)
[2024-07-13 09:11] VITALS: BP 112/59; PULSE 55; TEMP 98.3
== END 2024-07-13 11:59 | disposition home or self-care (01) | DRG 201 ==
LOC: EC 01:40 → 3SCARD 05:54
PROVIDERS: ADMIT Internal Medicine; ATTEND Internal Medicine
DX: I48.0 Paroxysmal atrial fibrillation (principal); D66 Hereditary factor VIII deficiency; E53.8 Deficiency of other specified B group vitamins; I08.1 Rheumatic disorders of both mitral and tricuspid valves; I10 Essential (primary) hypertension; K72.90 Hepatic failure, unspecified without coma; G62.9 Polyneuropathy, unspecified; G89.29 Other chronic pain; Z79.899 Other long term (current) drug therapy; Z79.01 Long term (current) use of anticoagulants; Z90.81 Acquired absence of spleen; Z83.2 Family history of diseases of the blood and blood-forming organs and certain disorders involving the immune mechanism; Z79.82 Long term (current) use of aspirin; Z88.8 Allergy status to other drugs, medicaments and biological substances; Z87.01 Personal history of pneumonia (recurrent); Z87.19 Personal history of other diseases of the digestive system
CPT/HCPCS: 36415; 71045; 80048; 80053; 80061; 83735; 84443; 84484; 85025; 85610; 85730; 93005; 93306; 96365; 96366; 99291